=== PATIENT | male | born 1975 | race African-American/Black ===

== ENCOUNTER 2017-07-12 16:08 | Outpatient (CLI) | payer MEDICAID | END 2017-07-12 16:09 | disposition critical access hospital (66) | LOC: EMS 16:08 | PROVIDERS: ATTEND Surgery | DX: R10.9 Unspecified abdominal pain (principal); R07.9 Chest pain, unspecified; R11.10 Vomiting, unspecified | CPT/HCPCS: A0425; A0429 ==

== ENCOUNTER 2017-07-12 16:32 | Observation (INO) | payer MEDICAID ==
--- NOTE | 2017-07-12 16:47 | ED Physician Documentation ---
PD HPI ABD PAIN - Stated complaint Stated Complaint: ABD PX - Chief complaint Chief Complaint: Abd Pain - History obtained from History obtained from: Patient - History of Present Illness Timing - onset: Today (this morning) Timing - details: Gradual onset, Still present, Waxing and waning (started this morning with epigastric pain and some nausea, which worsened this afternoon. Having marked pain upper abd and now repetitive vomiting. Noted some red blood streaks in the emesis. No black color. Has had firm stools recently, without diarrhea nor melena.) Quality: Sharp, Pain Location: Epigastric Radiation: Chest Improved by: Position (lying on side). No: Laying still, Vomiting Worsened by: Eating. No: Breathing Associated symptoms: Nausea, Vomiting, Hematemesis, Loss of appetite. No: Fever , Diarrhea, Constipation, Melena, Hematochezia, Dysuria, Weight loss Review of Systems Ten Systems: 10 systems reviewed and negative Constitutional: denies: Fever, Chills Nose: denies: Rhinorrhea / runny nose, Congestion Throat: denies: Sore throat Cardiac: denies: Palpitations GI: reports: Abdominal Pain, Nausea, Vomiting. denies: Diarrhea : denies: Dysuria, Frequency Neurologic: reports: Generalized weakness. denies: Focal weakness, Numbness, Near syncope, Headache Endocrine: denies: Weight loss, Easy bruising / bleeding PD PAST MEDICAL HISTORY - Past Medical History Cardiovascular: [place] Respiratory: None Neuro: None Endocrine/Autoimmune: None GI: Ulcers - Present Medications Home Medications: Ambulatory Orders Medication Instructions Recorded Confirmed Pantoprazole [Protonix] 40 mg PO DAILY 07/12/17 07/12/17 Prazosin [Minipress] 1 tab PO DAILY 07/12/17 07/12/17 - Allergies Allergies/Adverse Reactions: Allergies Allergy/AdvReac Type Severity Reaction Status Date / Time No Known Drug Allergies Allergy Verified 07/12/17 16:37 - Family History Family history: reports: Non contributory PD ED PE NORMAL - Vitals Vital signs reviewed: Yes - General General: Alert and oriented X 3, Well developed/nourished, Other (in discomfort and is rolling side to side and holding blanket over his head. He is reluctant to have exam due to discomfort. Some vomiting during initial evaluation. ) - HEENT HEENT: Pharynx benign - Neck Neck: Supple, no meningeal sign, No adenopathy - Cardiac Cardiac: RRR, No murmur - Respiratory Respiratory: Clear bilaterally - Abdomen Abdomen: Soft, No organomegaly, Other (markedly tender epigastric/upper abdomen with guarding, no percussion tenderness. Lower abd not tender. Bowel sounds present. Upper abd feels somewhat distended. ) - Male Male : Deferred - Rectal Rectal: Deferred - Back Back: No CVA TTP - Derm Derm: Normal color, Warm and dry - Extremities Extremities: No deformity, No tenderness to palpate, Normal ROM s pain, No edema , No calf tenderness / cord - Neuro Neuro: Alert and oriented X 3, No motor deficit, Normal speech Eye Opening: Spontaneous Motor: Obeys Commands Verbal: Oriented GCS Score: 15 - Psych Psych: Normal mood. No: Normal affect (somewhat anxious) Results - Vitals Vitals: Vital Signs - 24 hr 07/12/17 07/12/17 07/12/17 16:34 19:09 19:35 Temperature 36.5 C Heart Rate 63 56 L 60 Respiratory 16 18 18 Rate Blood Pressure 163/87 H 131/88 H 132/66 H O2 Saturation 98 96 97 07/12/17 07/12/17 07/12/17 20:00 20:37 21:40 Temperature Heart Rate 58 L 55 L 61 Respiratory 16 18 16 Rate Blood Pressure 139/74 H 138/62 H 121/64 O2 Saturation 97 97 98 07/12/17 22:12 Temperature Heart Rate 59 L Respiratory 16 Rate Blood Pressure 116/75 O2 Saturation 99 Oxygen O2 Source Room air - EKG (time done) 16:43 Rate: Rate (enter#) (65) Rhythm: NSR [place]: Normal Intervals: Normal [place] QRS: Normal Ischemia: Normal ST segments, T wave inversion (lateral leads, without ST changes). No: ST elevation c/w ischemia, ST depression Compare to prior EKG: Old EKG unavailable - Labs Labs: Laboratory Tests 07/12/17 07/12/17 07/12/17 19:44 19:44 19:44 WBC 10.3 RBC 4.47 L Hgb 14.1 Hct 42.4 MCV 94.7 H MCH 31.4 H MCHC 33.2 RDW 13.7 Plt Count 277 MPV 7.1 L Neut # Not Reportable Lymph # Not Reportable [place] # Not Reportable Eos # Not Reportable Baso # Not Reportable Absolute Nucleated RBC Not Reportable Total Counted 100 Band Neuts % (Manual) 0 Reactive Lymphs % (Man) 2 Abnorm Lymph % (Manual) 0 Metamyelocytes % 1 H Nucleated RBC % Not Reportable Neutrophils # (Manual) 7.7 H Lymphocytes # (Manual) 2.3 Monocytes # (Manual) 0.2 Eosinophils # (Manual) 0.0 Basophils # (Manual) 0.0 Differential Comment MANUAL DIFFERENTIAL Platelet Estimate NORMAL (130-450,000) Platelet Morphology NORMAL APPEARANCE RBC Morph Micro Appear NORMAL APPEARANCE Sodium 138 Potassium 3.1 L Chloride 103 Carbon Dioxide 23 Anion Gap 12.0 BUN 8 Creatinine 0.7 Estimated GFR (MDRD) 149 Glucose 118 H Calcium 9.2 Total Bilirubin 0.6 AST 23 ALT 25 Alkaline Phosphatase 49 Troponin I < 0.04 Total Protein 7.9 Albumin 5.0 Globulin 2.9 Albumin/Globulin Ratio 1.7 Lipase < 10 L - Rads (name of study) abd CT Radiology: Prelim report reviewed (No acute process to account for the pain) PD MEDICAL DECISION MAKING - ED course Complexity details: reviewed results, re-evaluated patient (Still having pain after meds and feeling nauseated. IV problematic and took several attempts by nursing. Pt given IM meds in interim. IV started and given meds for pain/nausea and also H2 jimi. He has scant amount of blood in emesis. Presume gastritis/ ulcer. He is not improved enough to tolerate PO fluids/foods. Will have Hospitalist evaluate. ), considered differential (Seems likely gastritis. ECG with some t inversions but no ST changes. Has had pain for 8 hours or so with normal troponin. Does not appear cardiac. CT abdomen done and did not show acute process (no perforation, free air). ), d/w patient Departure - Departure Disposition: ED Place in Observation Clinical Impression: Abdominal pain Qualifiers: Abdominal location: epigastric Qualified Code(s): R10.13 - Epigastric pain Vomiting Qualifiers: Vomiting type: hematemesis Nausea presence: with nausea Qualified Code(s): K92.0 - Hematemesis Gastritis Qualifiers: Gastritis type: unspecified gastritis Chronicity: acute Gastritis bleeding: with bleeding Qualified Code(s): K29.01 - Acute gastritis with bleeding Condition: Stable Record reviewed to determine appropriate education?: Yes
[2017-07-12] MEDS ORDERED: SODIUM CHLORIDE 0.9% 1,000 ML IV ONE (17:07)
[2017-07-12] MEDS ORDERED: ONDANSETRON 4 MG/2 ML VIAL IVP STA (17:07)
[2017-07-12] MEDS ORDERED: MORPHINE 2 MG/ML CARPUJECT IVP STA (17:08)
[2017-07-12] MEDS ORDERED: FAMOTIDINE 20 MG/50 ML 50 ML IV ONE (17:08)
[2017-07-12] MEDS ORDERED: PROMETHAZINE 25 MG/1 ML VIAL IM STA (17:08)
[2017-07-12] MEDS ORDERED: HYDROmorphone 1 MG/ML SYRINGE IM STA (17:31)
[2017-07-12] MEDS ORDERED: MORPHINE 2 MG/ML CARPUJECT ONE (17:48)
[2017-07-12] MEDS ORDERED: HYDROmorphone 1 MG/ML SYRINGE IVP STA ×2 (18:10→19:49)
[2017-07-12 19:52] LABS: BASOPHILS % (AUTO) 0.6 %; EOSINOPHILS % (AUTO) 0.1 %; HGB - HEMOGLOBIN 14.1 g/dL (14.0-18.0); MEAN CORPUSCULAR HEMOGLOBIN 31.4 pg (27.0-31.0); MEAN CORPUSCULAR HGB CONC 33.2 g/dL (32.0-36.0); MEAN CORPUSCULAR VOLUME 94.7 fL (80.0-94.0); MEAN PLATELET VOLUME 7.1 fL (7.4-11.4); MONOCYTES % (AUTO) 4.2 %; NEUTROPHILS % (AUTO) 86.1 %; PLT - PLATELET COUNT 277 10^3/uL (130-450); RED BLOOD COUNT 4.47 10^6/uL (4.70-6.10); RED CELL DISTRIBUTION WIDTH 13.7 % (12.0-15.0); WHITE BLOOD COUNT 10.3 x10^3/uL (4.8-10.8)
[2017-07-12 19:55] LABS: ABNORMAL LYMPHS % (MANUAL) 0 %; BAND NEUTROPHILS % (MANUAL) 0 %
[2017-07-12 20:10] LABS: LYMPHOCYTES # (MANUAL) 2.3 10^3/uL (1.5-3.5); LYMPHOCYTES % (MANUAL) 20 %; METAMYELOCYTES % (MANUAL) 1 %; MONOCYTES # (MANUAL) 0.2 10^3/uL (0.0-1.0); NEUTROPHILS # (MANUAL) 7.7 10^3/uL (1.5-6.6); NEUTROPHILS % (MANUAL) 75 %
[2017-07-12 20:11] LABS: DIFFERENTIAL COMMENT MANUAL DIFFERENTIAL; PLATELET ESTIMATE, MANUAL NORMAL (130-450,000) (NORMAL); PLATELET MORPHOLOGY NORMAL APPEARANCE (NORMAL); RBC MORPHOLOGY (MULTIPLE) NORMAL APPEARANCE (NORMAL)
[2017-07-12 20:14] LABS: ALBUMIN/GLOBULIN RATIO 1.7 (1.0-2.2); ALKALINE PHOSPHATASE 49 IU/L (42-121); ALT ALANINE AMINOTRANSFERASE 25 IU/L (10-60); AST ASPARTATE AMINOTRANSFERASE 23 IU/L (10-42); BILIRUBIN,TOTAL 0.6 mg/dL (0.2-1.0); BUN - BLOOD UREA NITROGEN 8 mg/dL (6-20); CALCIUM 9.2 mg/dL (8.5-10.3); CARBON DIOXIDE - CO2 23 mmol/L (21-32); CHLORIDE 103 mmol/L (101-111); CREATININE 0.7 mg/dL (0.6-1.2); GFR - MDRD 149 (>89); GLUCOSE 118 mg/dL (70-100); SODIUM 138 mmol/L (135-145); TOTAL PROTEIN 7.9 g/dL (6.7-8.2)
[2017-07-12 20:34] LABS: LIPASE < 10 U/L (22-51)
--- NOTE | 2017-07-12 21:41 | CT Report ---
EXAM: CT ABDOMEN AND PELVIS EXAM DATE: 07/12/2017 09:24 PM. CLINICAL HISTORY: Upper abd pain and vomiting. COMPARISONS: None. TECHNIQUE: Routine helical CT imaging was performed through the abdomen and pelvis. IV contrast: None . Enteric contrast: No. Reconstructions: Coronal and sagittal. In accordance with CT protocol optimization, one or more of the following dose reduction techniques w ere utilized for this exam: automated exposure control, adjustment of mA and/or KV based on patient s ize, or use of iterative reconstructive technique. FINDINGS: Lung Bases: Unremarkable. Liver: Normal contour. No masses. Gallbladder/Bile Ducts: Unremarkable. Spleen: Normal. Pancreas: Normal. Adrenal Glands: Normal. Kidneys: Normal. No masses or hydronephrosis. No urologic stones are seen. Peritoneal Cavity/Bowel: Normal. No free fluid, free air or adenopathy. No masses or acute inflammato ry process. The appendix is well visualized and normal. Pelvic Organs: Normal. The bladder and visualized pelvic organs appear within normal limits. Vasculature: No aneurysms or other significant abnormality. Bones: No bone lesions. IMPRESSION: There are no CT findings to suggest a cause of the patient's symptoms [facility] Referring Provider Line: [phone] SITE ID: [id number]
[2017-07-12] MEDS ORDERED: HALOPERIDOL 5 MG/ML VIAL IVP ONE (21:58)
[2017-07-13] MEDS ORDERED: ACETAMINOPHEN 1,000 MG/100 ML 100 ML IV PRN
[2017-07-13] MEDS: HYDROmorphone 1 MG/ML SYRINGE IVP PRN ×3 (00:22→11:06)
[2017-07-13] MEDS: SODIUM CHLORIDE FLUSH 0.9% 10 ML SYRINGE IVP PRN ×2 (00:22→08:40)
[2017-07-13] MEDS: D5NS W/20 MEQ KCL 1,000 ML IV SCH ×2 (00:33→13:41)
[2017-07-13] MEDS: PROCHLORPERAZINE 10 MG/2 ML VIAL IVP PRN ×2 (00:46→08:36)
[2017-07-13] MEDS: PANTOPRAZOLE 40 MG VIAL IV SCH ×2 (00:47→08:40)
[2017-07-13] MEDS ORDERED: ZOLPIDEM 5 MG TABLET PO PRN (01:01)
[2017-07-13] MEDS ORDERED: ZOLPIDEM 5 MG TABLET PO SCH (01:10)
[2017-07-13 05:43] LABS: CALCIUM 8.7 mg/dL (8.5-10.3); CREATININE 0.9 mg/dL (0.6-1.2)
[2017-07-13] MEDS: SODIUM CHLORIDE FLUSH 0.9% 10 ML SYRINGE IVP SCH ×2 (05:59→13:04)
--- NOTE | 2017-07-13 06:22 | HISTORY & PHYSICAL EXAMINATION ---
DATE OF SERVICE: Physician: Esther Roberts MD DATE OF ADMISSION: 07/12/2017 This is a 42-year-old black male with a history of "small [place]," probable hypertension, and a history of prior gastric ulcers. The patient presents with 1 day of waxing and waning, and slowly worsening epigastric pain with nausea and vomiting. He denies any fever , melena, hematochezia, hematemesis. His pain was so bad that he was writhing in pain when in the emergency room and vomiting. He has received improvement with antiemetics and pain medications, but still has mild nausea and mild pain, which is across the entire epigastrium with radiation up into the chest. The patient has a separate type of chest pressure that he states has happened since his "small heart attack." He never had a coronary angiogram. He has just moved to the [place] and has not established yet with a primary care provider to have evaluation of this. ALLERGIES: NONE. MEDICATIONS AT HOME 1. Protonix 40 mg daily. 2. Minipress 1 tab p.o. daily. FAMILY HISTORY: No inherent diseases. SOCIAL HISTORY: Nonsmoker, no drug abuse. REVIEW OF SYSTEMS: A comprehensive review of systems was performed and the pertinent positives are in the HPI. PHYSICAL EXAMINATION GENERAL: Male in no distress, supine in bed with head of bed elevated, who appears somewhat fatigued. VITAL SIGNS: Blood pressure 138/62, pulse 55-60 in sinus rhythm, afebrile, room air saturation is 99%. HEENT: Unremarkable with moist oral mucosa. NECK: Shows no JVD, thyromegaly or carotid bruits. CHEST: Clear. HEART: Sounds normal. ABDOMEN: Soft with no distention, decreased bowel sounds, no guarding or rebound. LEGS: No clubbing, cyanosis or edema. No calf tenderness. NEUROLOGIC: Intact. LABS: Sodium 138, potassium 3.1. Normal BUN and creatinine. Normal liver tests. Troponin I detectable at less than 0.04. Albumin 2.9, white blood count 10.3 with elevated metamyelocytes and a left shift of neutrophils. Hemoglobin is 14 and platelet count normal at 277. No INR was done. IMAGING: CT of the abdomen and pelvis showed no etiology to suggest a cause of the patient's symptoms: no free fluid, free air, or masses or inflammatory process. EKG: Normal sinus rhythm, LVH voltage, left anterior fascicular block, early RS transition, symmetrically, deeply inverted T waves in leads V4 through V6. There is no old EKG available for comparison. IMPRESSION/DIAGNOSES 1. Probable gastritis. 2. Nausea and vomiting, prolonged. 3. Abnormal electrocardiogram. 4. Old myocardial infarction, per the patient. PLAN: Place the patient in Observation for bowel rest, IV hydration, IV antiemetics. Cycle his troponins and follow his EKG for any changes. Advance his diet as tolerated to clear liquids starting tomorrow. He should have outpatient evaluation for his separate chest pressure symptoms, which he currently is not having, as well as this abnormal EKG. CODE STATUS: FULL CODE. DVT PROPHYLAXIS: SCDs. ATTESTATION: The patient is expected to be discharged for transfer to another facility within 96 hours: Yes. TD: 07/13/2017 07:21 MTDD
[2017-07-13] MEDS ORDERED: PRAZOSIN 1 MG CAPSULE PO SCH (09:00)
[2017-07-13] MEDS ORDERED: ONDANSETRON ODT 4 MG TABLET TL PRN (10:52)
[2017-07-13 13:50] VITALS: BP 108/58
--- NOTE | 2017-07-13 15:16 | Discharge Plan ---
Discharge Plan Disposition: 01 Home, Self Care Condition: Stable Prescriptions: Ondansetron Odt [Zofran Odt] 4 mg TL Q4HR PRN #10 tablet PRN Reason: Nausea / Vomiting Pantoprazole [Protonix] 40 mg PO DAILY #15 tablet Prazosin [Minipress] 1 mg PO DAILY #15 capsule Diet: Regular Activity Restrictions: Activity as Tolerated Shower Restrictions: No Driving Restrictions: No Weight Bearing: Full Weight No Smoking: If you smoke, Please STOP! Call for help.
--- NOTE | 2017-07-13 15:25 | DISCHARGE SUMMARY ---
Discharge Summary Admit Date: 07/12/17 Discharge Date: 07/13/17 Discharging Provider: Jacque Lopez DO Primary Care Provider: Pt is new to [facility] and will choose one this week Code Status: Attempt Resuscitation Condition at Discharge: Stable Discharge Disposition: Home, Self Care - DIAGNOSES Admission Diagnoses: Gastritis Discharge Diagnoses with Status of Each Condition: Gastriris- The patient does have a history of a fairly recent NM, and had 2 sets of troponins come back completely negative. The EKG shows some mild changes in the inferior leads and lateral leads but is otherwise unremarkable. The patient has been able to tolerate 2 meals of clear liquids and will now be discharged to follow-up with a primary care physician of his choice next week. - HPI History of Present Illness: The patient is a 42-year-old black male with a history of "small NM", hypertension and gastric ulcers. He presented to the emergency department with 1 day of waxing and waning but slowly worsening epigastric pain with nausea and vomiting. He denied any fever or melena, hematochezia, or hematemesis. His pain was so bad that he was writhing in pain when in the emergency room and he was also vomiting. He has received some relief with antiemetics and pain medications but still has mild nausea and mild pain which he says is across the entire epigastrium with radiation up into the chest. He also notes that the pain that he is having right now is different from the pain that he had when he had his "small NM". He has just moved to [facility] has not yet established with a primary care provider to have this pain evaluated. - HOSPITAL COURSE Hospital Course: The patient was admitted to an observation bed. Serial troponins were negative for any cardiac events and EKG showed some mild changes as noted above. He was able to tolerate 2 full meals of clear liquids and will now be discharged home to follow-up with the primary care provider of his choice. - ALLERGIES Allergies/Adverse Reactions: Allergies Allergy/AdvReac Type Severity Reaction Status Date / Time No Known Drug Allergies Allergy Verified 07/12/17 16:37 - MEDICATIONS Home Medications: Ambulatory Orders Medication Instructions Recorded Confirmed Pantoprazole [Protonix] 40 mg PO BID 07/12/17 07/13/17 Ondansetron Odt [Zofran Odt] 4 mg TL Q4HR PRN #10 tablet 07/13/17 Pantoprazole [Protonix] 40 mg PO DAILY #15 tablet 07/13/17 Prazosin [Minipress] 1 mg PO DAILY #15 capsule 07/13/17 Promethazine [Phenergan] 25 mg PO Q6H PRN 07/13/17 07/13/17 Zolpidem [Ambien] 5 mg PO QPM tablet 07/13/17 - PHYSICAL EXAM AT DISCHARGE General Appearance: positive: No acute distress, Alert Eyes Bilateral: positive: Normal inspection, PERRL, EOMI, No lid inflammation, Conjunctivae nml ENT: positive: ENT inspection nml, Pharynx nml, No signs of dehydration. negative: Purulent nasal drainage Neck: positive: Nml inspection, Thyroid nml, No JVD, Trachea midline. negative : Thyromegaly Respiratory: positive: Chest non-tender, No respiratory distress, Breath sounds nml. negative: Wheezes, Rales, Rhonchi Cardiovascular: positive: Regular rate & rhythm, No murmur, No gallop. negative : Bradycardia Peripheral Pulses: positive: 1+ Abdomen: positive: Non-tender, No organomegaly, Nml bowel sounds, No distention. negative: Tenderness Back: positive: Nml inspection. negative: CVA tenderness (R), CVA tenderness (L ) Skin: positive: Color nml, No rash, Warm, Dry. negative: Cyanosis Extremities: positive: Non-tender, Full ROM, Nml appearance, No pedal edema Neurologic/Psychiatric: positive: Oriented x3, CN's nml (2-12), Motor nml, Sensation nml, Mood/affect nml - LABS Result Diagrams: 07/12/17 19:44 07/13/17 05:20 - FOLLOW UP Follow Up: The patient will follow up with the primary care provider of his choice which she will choose next week. It is recommended that he also follow-up with a boilers inspector. - TIME SPENT Time Spent in Discharge (Minutes): 30
== END 2017-07-13 16:00 | disposition home or self-care (01) ==
LOC: ED 16:32 → OBS 23:37
PROVIDERS: ADMIT Internal Medicine; ATTEND Hospitalist
DX: K29.00 Acute gastritis without bleeding (principal); I10 Essential (primary) hypertension; I25.2 Old myocardial infarction
CPT/HCPCS: 36415; 74176; 80048; 80053; 83690; 84484; 85025; 93005; 96361; 96365; 96372; 96375; 96376; 99284; 99285; 99406; A9270; G0378; J1170; Q0162

== ENCOUNTER 2017-08-04 17:57 | Observation (INO) | payer MEDICAID ==
[2017-08-04] MEDS ORDERED: ONDANSETRON 4 MG/2 ML VIAL IVP STA (18:42)
[2017-08-04] MEDS ORDERED: PANTOPRAZOLE 40 MG VIAL IVP STA (18:42)
[2017-08-04] MEDS ORDERED: HYDROmorphone 1 MG/ML SYRINGE IVP STA ×2 (18:42→19:37)
[2017-08-04] MEDS ORDERED: SODIUM CHLORIDE 0.9% 1,000 ML IV ONE ×2 (18:43)
--- NOTE | 2017-08-04 18:44 | ED Physician Documentation ---
PD HPI ABD PAIN - Stated complaint Stated Complaint: VOMITING - Chief complaint Chief Complaint: Abd Pain - History obtained from History obtained from: Patient - History of Present Illness Timing - onset: How many days ago (several) Timing - duration: Days Timing - details: Gradual onset Pain level max: 10 Pain level now: 10 Quality: Aching, Indigestion, Pain Location: Epigastric Radiation: Chest Improved by: Other (nothing) Worsened by: Eating, Other (vomiting) Associated symptoms: Nausea, Vomiting. No: Fever, Hematemesis, Diarrhea, Constipation, Melena, Hematochezia, Dysuria, Hematuria Similar symptoms before: Diagnosis (gastritis) Recently seen: Admitted (observation for vomiting and gastritits. ran out of protonix.) - Additional information Additional information: Also uses marijuana regularly. Review of Systems Ten Systems: 10 systems reviewed and negative Constitutional: denies: Fever, Chills Ears: denies: Ear pain Nose: denies: Rhinorrhea / runny nose, Congestion Cardiac: denies: Chest pain / pressure Respiratory: denies: Cough, Wheezing GI: reports: Nausea, Vomiting. denies: Diarrhea, Hematemesis, Bloody / black stool : denies: Dysuria Skin: denies: Rash Musculoskeletal: denies: Neck pain, Back pain Neurologic: denies: Headache PD PAST MEDICAL HISTORY - Past Medical History Past Medical History: Yes Cardiovascular: Hypertension, [place] Respiratory: None Neuro: None Endocrine/Autoimmune: None GI: Ulcers, Hiatal hernia : None HEENT: None Psych: Depression, Anxiety, Post traumatic stress disorder Musculoskeletal: None Derm: None - Past Surgical History Past Surgical History: Yes General: Appendectomy Ortho: Other - Present Medications Home Medications: Ambulatory Orders Medication Instructions Recorded Confirmed Pantoprazole [Protonix] 40 mg PO BID 07/12/17 08/04/17 Ondansetron Odt [Zofran Odt] 4 mg TL Q4HR PRN #10 tablet 07/13/17 08/04/17 Pantoprazole [Protonix] 40 mg PO DAILY #15 tablet 07/13/17 08/04/17 Prazosin [Minipress] 1 mg PO DAILY #15 capsule 07/13/17 08/04/17 Promethazine [Phenergan] 25 mg PO Q6H PRN 07/13/17 08/04/17 Zolpidem [Ambien] 5 mg PO QPM tablet 07/13/17 08/04/17 - Allergies Allergies/Adverse Reactions: Allergies Allergy/AdvReac Type Severity Reaction Status Date / Time No Known Drug Allergies Allergy Verified 08/04/17 18:15 - Social History Does the pt smoke?: Yes Smoking Status: Current every day smoker Does the pt drink ETOH?: Yes Does the pt have substance abuse?: No Substance Use and Type: Marijuana - Immunizations Immunizations are current?: Yes PD ED PE NORMAL - Vitals Vital signs reviewed: Yes - General General: Alert and oriented X 3, Well developed/nourished, Other (curled in a ball, writhing.) - HEENT HEENT: PERRL, Moist mucous membranes - Neck Neck: Supple, no meningeal sign - Cardiac Cardiac: RRR, Strong equal pulses - Respiratory Respiratory: No respiratory distress, Clear bilaterally - Abdomen Abdomen: Soft, Non distended, Other (TTP epigastric, voluntary guarding. ) - Rectal Rectal: Pt declined - Back Back: No spinal TTP - Derm Derm: Warm and dry, No rash - Extremities Extremities: No edema, No calf tenderness / cord - Neuro Neuro: Alert and oriented X 3 - Psych Psych: Normal mood, Normal affect Results - Vitals Vitals: Vital Signs - 24 hr 08/04/17 08/04/17 08/04/17 18:13 19:33 21:19 Temperature 37.6 C H Heart Rate 94 78 101 H Respiratory 18 15 Rate Blood Pressure 161/112 H 163/113 H 118/82 H O2 Saturation 97 99 99 08/04/17 22:03 Temperature Heart Rate 97 Respiratory 16 Rate Blood Pressure 153/113 H O2 Saturation 97 Oxygen O2 Source Room air - Labs Labs: Laboratory Tests 08/04/17 08/04/17 18:39 18:39 WBC 12.6 H RBC 5.05 Hgb 15.6 Hct 47.4 MCV 93.7 MCH 30.9 MCHC 33.0 RDW 13.4 Plt Count 317 MPV 6.8 L Neut # 7.8 H Lymph # 3.5 [place] # 1.1 H Eos # 0.0 Baso # 0.1 Absolute Nucleated RBC 0.01 Nucleated RBC % 0.1 Sodium 138 Potassium 3.1 L Chloride 100 L Carbon Dioxide 24 Anion Gap 14.0 H BUN 18 Creatinine 1.2 Estimated GFR (MDRD) 80 L Glucose 117 H Calcium 9.7 Total Bilirubin 1.1 H AST 21 ALT 22 Alkaline Phosphatase 45 Total Protein 8.4 H Albumin 5.1 Globulin 3.3 Albumin/Globulin Ratio 1.5 Lipase < 10 L - Rads (name of study) abdomen/pelvis CT Radiology: Prelim report reviewed, EMP read contemporaneously, See rad report ( normal) PD MEDICAL DECISION MAKING - ED course Complexity details: reviewed old records, reviewed results, re-evaluated patient , considered differential, d/w patient, d/w it solutions sales consultant ED course: Patient is a 42-year-old male who presents to the emergency department with nausea vomiting and epigastric pain. Similar symptoms a few weeks ago. Ran out of his Protonix. He was given Zofran, Phenergan, Dilaudid, Ativan, IV fluids. Unable to tolerate p.o. Also given a GI cocktail, but unable to hold that down as well. He was then given haloperidol in case this is cannabinoid- induced hyperemesis, no change in symptoms. His pain was eventually able to be controlled, though still unable to tolerate p.o. No evidence of bowel obstruction or perforation on CT. Given Protonix IV. Will place the patient in observation for fluid hydration and bowel rest. Discussed the case with Dr. Lanza, hospitalist who accepts. This document was made in part using voice recognition software. While efforts are made to proofread this document, sound alike and grammatical errors may occur. Departure - Departure Disposition: ED Place in Observation Clinical Impression: Gastritis Qualifiers: Gastritis type: unspecified gastritis Chronicity: acute Gastritis bleeding: without bleeding Qualified Code(s): K29.00 - Acute gastritis without bleeding Vomiting Qualifiers: Vomiting type: unspecified Vomiting Intractability: intractable Nausea presence : with nausea Qualified Code(s): R11.2 - Nausea with vomiting, unspecified Abdominal pain Qualifiers: Abdominal location: epigastric Qualified Code(s): R10.13 - Epigastric pain Condition: Stable Discharge Date/Time: 08/05/17 00:05
[2017-08-04 18:45] LABS: BASOPHILS # (AUTO) 0.1 10^3/uL (0.0-0.1); BASOPHILS % (AUTO) 0.8 %; EOSINOPHILS % (AUTO) 0.3 %; HGB - HEMOGLOBIN 15.6 g/dL (14.0-18.0); LYMPHOCYTES # (AUTO) 3.5 10^3/uL (1.5-3.5); LYMPHOCYTES % (AUTO) 27.9 %; MEAN CORPUSCULAR HEMOGLOBIN 30.9 pg (27.0-31.0); MEAN CORPUSCULAR VOLUME 93.7 fL (80.0-94.0); MEAN PLATELET VOLUME 6.8 fL (7.4-11.4); MONOCYTES # (AUTO) 1.1 10^3/uL (0.0-1.0); MONOCYTES % (AUTO) 9.1 %; NEUTROPHILS # (AUTO) 7.8 10^3/uL (1.5-6.6); NEUTROPHILS % (AUTO) 61.9 %; PLT - PLATELET COUNT 317 10^3/uL (130-450); RED BLOOD COUNT 5.05 10^6/uL (4.70-6.10); RED CELL DISTRIBUTION WIDTH 13.4 % (12.0-15.0); WHITE BLOOD COUNT 12.6 x10^3/uL (4.8-10.8)
[2017-08-04] MEDS ORDERED: SUCRALFATE 1 GM/10 ML UDC PO STA (18:58)
[2017-08-04] MEDS ORDERED: PHENobarb/HYOSCY/ATROPINE/SCOP 5 ML SYRINGE PO STA (18:58)
[2017-08-04] MEDS ORDERED: MAG HYDROX/AL HYDROX/SIMETH 30 ML UDC PO STA (18:58)
[2017-08-04 19:00] LABS: ALBUMIN 5.1 g/dL (3.2-5.5); ALBUMIN/GLOBULIN RATIO 1.5 (1.0-2.2); ALKALINE PHOSPHATASE 45 IU/L (42-121); ALT ALANINE AMINOTRANSFERASE 22 IU/L (10-60); AST ASPARTATE AMINOTRANSFERASE 21 IU/L (10-42); BILIRUBIN,TOTAL 1.1 mg/dL (0.2-1.0); BUN - BLOOD UREA NITROGEN 18 mg/dL (6-20); CALCIUM 9.7 mg/dL (8.5-10.3); CARBON DIOXIDE - CO2 24 mmol/L (21-32); CHLORIDE 100 mmol/L (101-111); CREATININE 1.2 mg/dL (0.6-1.2); GFR - MDRD 80 (>89); GLUCOSE 117 mg/dL (70-100); LIPASE < 10 U/L (22-51); SODIUM 138 mmol/L (135-145); TOTAL PROTEIN 8.4 g/dL (6.7-8.2)
[2017-08-04] MEDS ORDERED: FAMOTIDINE 20 MG TABLET PO STA (19:37)
[2017-08-04] MEDS ORDERED: LORazepam 2 MG/ML VIAL IVP STA (20:37)
[2017-08-04] MEDS ORDERED: PROMETHAZINE INJ 25 MG in SODIUM CHLORIDE 0.9% 50 ML IV STA (21:10)
[2017-08-04] MEDS ORDERED: HYDROcod/ACETAM 5/325 MG TABLET PO STA (21:10)
[2017-08-04] MEDS ORDERED: IOPAMIDOL-300 100 ML VIAL ONE (21:35)
[2017-08-04] MEDS ORDERED: IOPAMIDOL-300 100 ML VIAL IVP ONE (21:53)
[2017-08-04] MEDS ORDERED: HALOPERIDOL 5 MG/ML VIAL IVP STA (21:59)
--- NOTE | 2017-08-04 22:29 | CT Report ---
EXAM: CT ABDOMEN AND PELVIS EXAM DATE: 08/04/2017 09:57 PM. CLINICAL HISTORY: Epigastric pain, h/o ulcers. COMPARISONS: 07/12/2017 CT. TECHNIQUE: Routine helical CT imaging was performed through the abdomen and pelvis. IV contrast: 100M L ISOVUE 300. Enteric contrast: No. Reconstructions: Coronal and sagittal. In accordance with CT protocol optimization, one or more of the following dose reduction techniques w ere utilized for this exam: automated exposure control, adjustment of mA and/or KV based on patient s ize, or use of iterative reconstructive technique. FINDINGS: Lung Bases: Unremarkable. Liver: Normal. No masses. Gallbladder/Bile Ducts: Unremarkable. Spleen: Normal. Pancreas: Normal. Adrenal Glands: Normal. Kidneys: Normal. No masses or hydronephrosis. Peritoneal Cavity/Bowel: Normal. No free fluid, free air or adenopathy. No masses or acute inflammato ry process. The appendix is well visualized and normal. Pelvic Organs: Normal. The bladder and visualized pelvic organs are within normal limits. Vasculature: No aneurysms or other significant abnormality. Bones: No significant abnormality. Other: None IMPRESSION: Unremarkable abdominal pelvic CT. [facility] Referring Provider Line: [phone] SITE ID: [id number]
[2017-08-04] MEDS ORDERED: ACETAMINOPHEN 325 MG TABLET PO PRN (23:08)
[2017-08-04] MEDS ORDERED: TEMAZEPAM 15 MG CAPSULE PO PRN (23:08)
[2017-08-04] MEDS ORDERED: HYDROcod/ACETAM 5/325 MG TABLET PO PRN (23:08)
[2017-08-04] MEDS ORDERED: HALOPERIDOL 5 MG/ML VIAL IVP PRN (23:12)
[2017-08-04] MEDS ORDERED: KETOROLAC 15 MG/ML VIAL IVP PRN (23:14)
[2017-08-04] MEDS ORDERED: POTASSIUM CHLOR 10 MEQ/100 ML 10 MEQ/100 ML BAG IV SCH (23:53)
[2017-08-05] MEDS: D5.45NS W/20 MEQ KCL 1,000 ML IV SCH ×2 (01:53→16:26)
[2017-08-05] MEDS: SODIUM CHLORIDE FLUSH 0.9% 10 ML SYRINGE IVP PRN ×2 (01:54→16:23)
[2017-08-05] MEDS: FAMOTIDINE 20 MG/50 ML 50 ML IV SCH ×2 (01:54→08:29)
[2017-08-05] MEDS: SUCRALFATE 1 GM/10 ML UDC PO SCH ×4 (01:54→16:16)
[2017-08-05] MEDS: POTASSIUM CHLORIDE 20 MEQ TABLET PO SCH ×2 (01:59→02:03)
--- NOTE | 2017-08-05 04:58 | HISTORY & PHYSICAL EXAMINATION ---
DATE OF SERVICE: 08/04/2017 Physician: Sahra Lanza MD DATE OF ADMISSION: 08/04/2017 CHIEF COMPLAINT: Nausea, vomiting and abdominal pain. HISTORY OF PRESENT ILLNESS: The patient is a 42-year-old male with recent admission to [facility]. In particular, he was admitted and had a short observation stay at the end of June 2017, with the diagnosis of gastritis. At that time, he had an abnormal EKG, complained of chest pain and reported history of myocardial infarction. He was sent home with treatment for gastritis, which included proton pump inhibitor and antiemetics. Today, the patient came to the ER reporting that he ran out of Protonix and, not having a primary care physician, he could not obtain a refill. He started to vomit intractably 3 days ago, complained of ongoing nausea and abdominal discomfort. Denied fever or diarrhea. This time, he did not report chest pain or shortness of breath. He, however, mentioned a history of ulcers and reported being evaluated with upper endoscopy a couple of months ago. Notably, he recently relocated to [facility] from [place]. We do not have any medical records on this patient. In particular, we do not have history of myocardial infarction that he claims he had and we do not have any documentation or objective history on ulcer disease, either. When I questioned the patient about substance abuse, he admitted to using cannabinoid, although not frequently. He denied using other substances. Upon presentation to the ED, the patient appeared nontoxic, had stable vital signs and was afebrile. Laboratory showed slightly elevated white blood cell count of 12.6 and hypokalemia with potassium of 3.1. Liver function tests were unremarkable. Renal function tests were normal as well. At the ER, the patient received multiple medications, quite an extensive regimen, which included: 1. Sucralfate. 2. Promethazine. 3. Phenobarbital. 4. Hyoscyamine. 5. Protonix. 6. Haldol. 7. Zofran. 8. Maalox. 9. Lorazepam. 10. Multiple doses of hydromorphone. 11. Vicodin. 12 Pepcid as well. Regardless of all this, his symptoms did not seem to improve, and he continued to complain of abdominal discomfort and nausea. Therefore, further evaluation was ordered and the patient underwent CT scan of the abdomen with IV contrast, which was an unremarkable, negative study. Subsequently, observation stay was requested for symptom control. PRIMARY CARE PHYSICIAN: No primary care physician. PAST MEDICAL HISTORY: Grossly unknown, but the patient claims having history of myocardial infarction and peptic ulcer disease. He had an abnormal EKG during past admission, but overall negative cardiac workup. OUTPATIENT MEDICATIONS Included: 1. Ambien. 2. Promethazine. 3. Prazosin. 4. Protonix. 5. Zofran. ALLERGIES: NO KNOWN DRUG ALLERGIES. SOCIAL HISTORY: The patient smokes marijuana. He recently relocated from [place]. FAMILY HISTORY: Negative for bowel pathology. REVIEW OF SYSTEMS: Please see pertinent positives listed above at history of present illness. The patient did not report additional complaints on the 12-point review. PRIMARY CARE PHYSICIAN: No outpatient medical care in [facility]. PHYSICAL EXAMINATION VITAL SIGNS: Temperature 37.6, heart rate between 70 and 90, blood pressure between 160/110 and 118/80, respiratory rate 18, oxygen saturation 99% on room air GENERAL: The patient is a well-developed, male who was not in distress. RESPIRATORY: Clear to auscultation without wheezes or crackles. No increased work of breathing. CARDIOVASCULAR: S1, S2, regular. Borderline tachycardia without murmur, rub or gallop. ABDOMEN: The patient was tensing his abdomen when I examined him. It appeared voluntary, then he told me that it was "tender". I could not palpate rebound. Bowel tones were hypoactive. LYMPHATIC: No lymphedema. NEUROLOGIC: Alert, oriented, nonfocal. PSYCHIATRIC: Cooperative. SKIN: The patient had dark skin. I could not appreciate jaundice or pallor. MUSCULOSKELETAL: Atraumatic. ER workup reviewed per electronic medical record. ASSESSMENT AND PLAN: The patient is a 42-year-old male who is getting admitted with symptoms of nausea, vomiting and abdominal pain. Emergency room workup was grossly unremarkable except for mild leukocytosis, which I suspect is nonspecific and hypokalemia. Most likely possibility is cannabinoid induced hyperemesis. The patient's symptoms did not get controlled during the ER stay; therefore, he is getting admitted under observation status. PLAN AND ORDERS 1. The patient is referred for observation. We will continue with symptom control, trying to avoid IV opiates. Toxicology screen was already ordered by the ER physician. We will continue IV hydration. 2. Replace potassium. 3. I discussed with the patient that marijuana could induce the exact symptoms he is experiencing and I recommended cessation. In addition, I asked the patient to provide his prior medical records regarding history of cardiac problems and history of gastric ulcers and endoscopy report. 4. Requested social work for discharge planning. The patient will need to establish primary care. 5. Continue home medications. 6. Deep venous thrombosis prophylaxis. 7. Disposition: This patient is referred for observation stay. The reasonable expectation is that he will be discharged within 24-48 hours. Time spent with the care of this patient was 50 minutes. TD: 08/05/2017 04:57 GONZALO
[2017-08-05] MEDS: SODIUM CHLORIDE FLUSH 0.9% 10 ML SYRINGE IVP SCH ×2 (06:09→12:59)
[2017-08-05] MEDS: ONDANSETRON 4 MG/2 ML VIAL IVP PRN ×2 (06:52→14:05)
[2017-08-05 07:06] LABS: MUDS CUTOFF CONCENTRATIONS CUTOFF CONC BELOW:
[2017-08-05 07:07] LABS: GLUCOSE, URINE (UA) NEGATIVE (NEGATIVE); KETONES,URINE (UA) TRACE mg/dL (NEGATIVE); LEUKOCYTE ESTERASE, URINE NEGATIVE (NEGATIVE); NITRITE,URINE NEGATIVE (NEGATIVE); OCCULT BLOOD,URINE NEGATIVE (NEGATIVE); PROTEIN,URINE NEGATIVE (NEGATIVE); UROBILINOGEN,URINE 0.2 (NORMAL) E.U./dL (NORMAL)
[2017-08-05 07:20] LABS: BILIRUBIN,URINE NEGATIVE (NEGATIVE); CLARITY,URINE CLEAR (CLEAR); ICTOTEST,URINE NEGATIVE
[2017-08-05 07:23] LABS: BENZODIAZEPINES SCREEN, URINE POSITIVE (NEGATIVE); METHAMPHETAMINES SCREEN, URINE POSITIVE (NEGATIVE); OPIATE SCREEN, URINE POSITIVE (NEGATIVE); PROPOXYPHENE SCREEN, URINE POSITIVE (NEGATIVE)
[2017-08-05 07:25] LABS: AMPHETAMINE SCREEN,URINE NEGATIVE (NEGATIVE); COCAINE SCREEN URINE NEGATIVE (NEGATIVE); METHADONE SCREEN, URINE NEGATIVE (NEGATIVE); OXYCODONE SCREEN, URINE NEGATIVE (NEGATIVE); TRICYCLIC ANTIDEPRESSANT,URINE NEGATIVE (NEGATIVE)
[2017-08-05 07:51] LABS: BASOPHILS # (AUTO) 0.1 10^3/uL (0.0-0.1); BASOPHILS % (AUTO) 1.1 %; EOSINOPHILS # (AUTO) 0.1 10^3/uL (0.0-0.7); EOSINOPHILS % (AUTO) 0.8 %; HGB - HEMOGLOBIN 13.8 g/dL (14.0-18.0); LYMPHOCYTES # (AUTO) 3.7 10^3/uL (1.5-3.5); LYMPHOCYTES % (AUTO) 39.3 %; MEAN CORPUSCULAR HEMOGLOBIN 32.2 pg (27.0-31.0); MEAN CORPUSCULAR VOLUME 94.7 fL (80.0-94.0); MEAN PLATELET VOLUME 6.9 fL (7.4-11.4); MONOCYTES # (AUTO) 0.9 10^3/uL (0.0-1.0); MONOCYTES % (AUTO) 9.6 %; NEUTROPHILS # (AUTO) 4.6 10^3/uL (1.5-6.6); NEUTROPHILS % (AUTO) 49.2 %; PLT - PLATELET COUNT 251 10^3/uL (130-450); RED CELL DISTRIBUTION WIDTH 13.7 % (12.0-15.0); WHITE BLOOD COUNT 9.4 x10^3/uL (4.8-10.8)
[2017-08-05 08:02] LABS: CALCIUM 8.7 mg/dL (8.5-10.3)
[2017-08-05] MEDS: PROCHLORPERAZINE 10 MG/2 ML VIAL IVP PRN ×2 (08:35→16:16)
[2017-08-05] MEDS ORDERED: PANTOPRAZOLE 40 MG TABLET PO SCH (09:00)
[2017-08-05] MEDS ORDERED: ENOXAPARIN 40 MG/0.4 ML SYRINGE SUBQ SCH (09:00)
[2017-08-05] MEDS ORDERED: PRAZOSIN 1 MG CAPSULE PO SCH (09:00)
[2017-08-05] MEDS ORDERED: POLYETHYLENE GLYCOL 3350 17 GM PACKET PO SCH (09:00)
[2017-08-05] MEDS: PROMETHAZINE 25 MG TABLET PO PRN ×2 (12:01→18:53)
[2017-08-05 16:21] VITALS: BP 116/71
--- NOTE | 2017-08-05 18:40 | Discharge Plan ---
Discharge Plan Disposition: 01 Home, Self Care Condition: Fair Diet: Regular Activity Restrictions: No Restrictions Shower Restrictions: No Driving Restrictions: No No Smoking: If you smoke, Please STOP! Call for help.
--- NOTE | 2017-08-05 18:43 | DISCHARGE SUMMARY ---
Discharge Summary Admit Date: 08/04/17 Discharge Date: 08/05/17 Discharging Provider: Jacque Lopez DO Primary Care Provider: None Code Status: Attempt Resuscitation Condition at Discharge: Fair Discharge Disposition: 01 Home, Self Care - DIAGNOSES Admission Diagnoses: 1. Abdominal pain 2. Gastritis 3. Nausea and vomiting Discharge Diagnoses with Status of Each Condition: 1. Abdominal pain- improved, resolving. Likely due to poor self care, Patient was positive for 6 different substances on the tox screen. 2. Gastritis- see #1 3. Nausea and vomiting- Resolved. The patient has been able to clear liquids, pretzels, and applesauce today. - HPI History of Present Illness: Mr. Christopher Wills is a 42-year-old male who has been admitted recently to the [facility] for abdominal pain. He has a recent history of coronary artery infarction and was worked up to rule out a cardiac event. The patient says that he does not have a PCP, and that he ran out of his Protonix 3 days ago. While in the emergency department the patient appeared nontoxic and had stable vital signs and was afebrile. Liver function tests renal function tests, and cardiac tests were all negative for any acute events. Because we could not get his symptoms under control, he was brought into observation for symptom management. His symptoms have now resolved and the patient wishes to be discharged. - HOSPITAL COURSE Hospital Course: Mr. Christopher Wills is a 42-year-old male who has been admitted recently to the [facility] for abdominal pain. He has a recent history of coronary artery infarction and was worked up to rule out a cardiac event. The patient says that he does not have a PCP, and that he ran out of his Protonix 3 days ago. While in the emergency department the patient appeared nontoxic and had stable vital signs and was afebrile. Liver function tests renal function tests, and cardiac tests were all negative for any acute events. Because we could not get his symptoms under control, he was brought into observation for symptom management. His symptoms have now resolved and the patient wishes to be discharged. - ALLERGIES Allergies/Adverse Reactions: Allergies Allergy/AdvReac Type Severity Reaction Status Date / Time No Known Drug Allergies Allergy Verified 08/04/17 18:15 - MEDICATIONS Home Medications: Ambulatory Orders Medication Instructions Recorded Confirmed Pantoprazole [Protonix] 40 mg PO BIDAC 07/12/17 08/05/17 Ondansetron Odt [Zofran Odt] 4 mg TL Q4HR PRN #10 tablet 07/13/17 08/05/17 Prazosin [Minipress] 1 mg PO DAILY #15 capsule 07/13/17 08/05/17 Promethazine [Phenergan] 25 mg PO Q6H PRN 07/13/17 08/05/17 - PHYSICAL EXAM AT DISCHARGE General Appearance: positive: No acute distress, Alert Eyes Bilateral: positive: Normal inspection, PERRL, EOMI, No lid inflammation, Conjunctivae nml ENT: positive: ENT inspection nml, Pharynx nml, No signs of dehydration Neck: positive: Nml inspection, Thyroid nml, No JVD, Trachea midline. negative : Thyromegaly Respiratory: positive: Chest non-tender, No respiratory distress, Breath sounds nml. negative: Wheezes, Rales, Rhonchi Cardiovascular: positive: Regular rate & rhythm, No murmur, No gallop Peripheral Pulses: positive: 1+ Abdomen: positive: Non-tender, No organomegaly, Nml bowel sounds, No distention. negative: Guarding, Rebound Back: positive: Nml inspection. negative: CVA tenderness (R), CVA tenderness (L ) Skin: positive: Color nml, No rash, Warm, Dry. negative: Cyanosis Extremities: positive: Non-tender, Full ROM, Nml appearance, No pedal edema Neurologic/Psychiatric: positive: Oriented x3, CN's nml (2-12), Motor nml, Sensation nml, Mood/affect nml - LABS Result Diagrams: 08/05/17 07:47 08/05/17 07:47 - DIAGNOSTIC IMAGING Diagnostic Imaging Results: Final report reviewed Diagnostic Imaging Results Comments: EXAM: CT ABDOMEN AND PELVIS EXAM DATE: 08/04/2017 09:57 PM. CLINICAL HISTORY: Epigastric pain, h/o ulcers. COMPARISONS: 07/12/2017 CT. TECHNIQUE: Routine helical CT imaging was performed through the abdomen and pelvis. IV contrast: 100ML ISOVUE 300. Enteric contrast: No. Reconstructions: Coronal and sagittal. In accordance with CT protocol optimization, one or more of the following dose reduction techniques were utilized for this exam: automated exposure control, adjustment of mA and/or KV based on patient size, or use of iterative reconstructive technique. FINDINGS: Lung Bases: Unremarkable. Liver: Normal. No masses. Gallbladder/Bile Ducts: Unremarkable. Spleen: Normal. Pancreas: Normal. Adrenal Glands: Normal. Kidneys: Normal. No masses or hydronephrosis. Peritoneal Cavity/Bowel: Normal. No free fluid, free air or adenopathy. No masses or acute inflammatory process. The appendix is well visualized and normal. Pelvic Organs: Normal. The bladder and visualized pelvic organs are within normal limits. Vasculature: No aneurysms or other significant abnormality. Bones: No significant abnormality. Other: None IMPRESSION: Unremarkable abdominal pelvic CT. - FOLLOW UP Follow Up: Follow-up with a primary care physician this week. - TIME SPENT Time Spent in Discharge (Minutes): 30
== END 2017-08-05 19:44 | disposition home or self-care (01) ==
LOC: ED 17:57 → OBS 23:08
PROVIDERS: ADMIT Internal Medicine; ATTEND Hospitalist
DX: K29.70 Gastritis, unspecified, without bleeding (principal); E87.6 Hypokalemia; K44.9 Diaphragmatic hernia without obstruction or gangrene; I10 Essential (primary) hypertension; Z87.11 Personal history of peptic ulcer disease; R78.89 Finding of other specified substances, not normally found in blood; Z72.89 Other problems related to lifestyle
CPT/HCPCS: 36415; 74177; 80048; 80053; 80306; 81003; 83690; 83735; 85025; 96361; 96365; 96366; 96367; 96375; 96376; 99218; 99284; 99285; A9270; J1170; J2060; J7040; Q0169; Q9967; 81001; 87086; 99283

== ENCOUNTER 2017-10-09 13:05 | Observation (INO) | payer MEDICAID ==
--- NOTE | 2017-10-09 13:54 | ED Physician Documentation ---
PD HPI NVD - Stated complaint Stated Complaint: ds - Chief complaint Chief Complaint: Cardiac - History obtained from History obtained from: Patient - History of Present Illness Timing - onset: Today, Last night Timing - details: Abrupt onset, Still present Associated symptoms: Abdominal pain (upper abdomen), Loss of appetite. No: Hematemesis, Melena, Hematochezia, Dysuria Contributing factors: Other (he has had gastritis in the past and ran out of his protonixa week ago, with refill resumed just 2 days ago. Has some antiemetics at home as well (Zofran) but they do not work too well for him. Has had similar in the past due to ? gastritis. Hospitalized OBS here in Jun and Jul of this year.). No: Sick contact, Bad food, Recent antibiotics, Alcohol use Improved by: No: Eating, Meds (zofran) Worsened by: Eating, Moving, Palpation. No: Breathing Similar symptoms before: Diagnosis (gastritis) Recently seen: Emergency Dept (July and June with admission each of those times.) Review of Systems Unable to obtain: Uncooperative (initially was hurting too much to talk and reluctant to give ROS, but then was able to after some meds.) Constitutional: denies: Fever, Chills Nose: denies: Rhinorrhea / runny nose, Congestion Throat: denies: Sore throat Cardiac: reports: Chest pain / pressure (epigastric area). denies: Palpitations , Pedal edema, Calf pain Respiratory: denies: Cough GI: reports: Abdominal Pain, Nausea, Vomiting. denies: Diarrhea, Hematemesis, Bloody / black stool : denies: Dysuria, Frequency Skin: denies: Rash, Lesions Neurologic: reports: Generalized weakness. denies: Focal weakness, Numbness, Near syncope, Altered mental status, Headache Psychiatric: denies: Anxiety Endocrine: denies: Weight loss PD PAST MEDICAL HISTORY - Past Medical History Past Medical History: Yes Cardiovascular: Hypertension, [place] (he says he had a "small [place]" in another state before moving here. He says he did not have cath nor stress testing with it though, and is not on cardiac meds. ) Respiratory: None Neuro: None Endocrine/Autoimmune: None GI: Ulcers, Hiatal hernia : None HEENT: None Psych: Depression, Anxiety, Post traumatic stress disorder Musculoskeletal: None Derm: None - Past Surgical History Past Surgical History: Yes General: Appendectomy Ortho: Other - Present Medications Home Medications: Ambulatory Orders Medication Instructions Recorded Confirmed Pantoprazole [Protonix] 40 mg PO BIDAC 07/12/17 08/05/17 Ondansetron Odt [Zofran Odt] 4 mg TL Q4HR PRN #10 tablet 07/13/17 08/05/17 Prazosin [Minipress] 1 mg PO DAILY #15 capsule 07/13/17 08/05/17 Promethazine [Phenergan] 25 mg PO Q6H PRN 07/13/17 08/05/17 - Allergies Allergies/Adverse Reactions: Allergies Allergy/AdvReac Type Severity Reaction Status Date / Time No Known Drug Allergies Allergy Verified 08/04/17 18:15 - Social History Does the pt smoke?: Yes Smoking Status: Current every day smoker Does the pt drink ETOH?: Yes Does the pt have substance abuse?: No - Family History Family history: reports: Non contributory - Immunizations Immunizations are current?: Yes PD ED PE NORMAL - Vitals Vital signs reviewed: Yes - General General: Alert and oriented X 3, Well developed/nourished, Other (appears in significant discomfort. Not wanting to talk due to discomfort. ) - HEENT HEENT: Pharynx benign, Other (some sweating due to discomfort. ) - Neck Neck: Supple, no meningeal sign, No adenopathy - Cardiac Cardiac: RRR, No murmur - Respiratory Respiratory: Clear bilaterally - Abdomen Abdomen: Normal bowel sounds, Non distended, No organomegaly, Other (very tender epigastric with guarding. No percussion tenderness. Emesis without blood nor coffeeground material. ) - Male Male : Deferred - Rectal Rectal: Deferred - Back Back: No CVA TTP - Derm Derm: Normal color, Warm and dry - Extremities Extremities: No tenderness to palpate, Normal ROM s pain, No edema, No calf tenderness / cord - Neuro Neuro: Alert and oriented X 3, No motor deficit, Normal speech - Psych Psych: Normal mood. No: Normal affect (anxious) Results - Vitals Vitals: Vital Signs - 24 hr 10/09/17 10/09/17 10/09/17 13:10 16:00 16:27 Temperature 36.0 C L Heart Rate 63 72 74 Respiratory 20 16 20 Rate Blood Pressure 145/85 H 164/109 H O2 Saturation 97 98 97 Oxygen O2 Source Room air - Labs Labs: Laboratory Tests 10/09/17 10/09/17 10/09/17 16:36 16:36 16:36 WBC 11.5 H RBC 4.46 L Hgb 14.2 Hct 42.4 MCV 95.1 H MCH 31.8 H MCHC 33.4 RDW 14.4 Plt Count 243 MPV 7.1 L Neut # 9.9 H Lymph # 1.2 L [place] # 0.3 Eos # 0.0 Baso # 0.0 Absolute Nucleated RBC 0.00 Nucleated RBC % 0.0 Sodium 138 Potassium 3.9 Chloride 105 Carbon Dioxide 22 Anion Gap 11.0 BUN 9 Creatinine 0.9 Estimated GFR (MDRD) 112 Glucose 93 Calcium 8.9 Total Bilirubin 0.4 AST 28 ALT 34 Alkaline Phosphatase 52 Troponin I < 0.04 Total Protein 8.0 Albumin 4.9 Globulin 3.1 Albumin/Globulin Ratio 1.6 Lipase 17 L Urine Color Urine Clarity Urine pH Ur Specific [place] Urine Protein Urine Glucose (UA) Urine Ketones Urine Occult Blood Urine Nitrite Urine Bilirubin Urine Urobilinogen Ur Leukocyte Esterase Ur Microscopic Review Urine Culture Comments 10/09/17 16:50 WBC RBC Hgb Hct MCV MCH MCHC RDW Plt Count MPV Neut # Lymph # [place] # Eos # Baso # Absolute Nucleated RBC Nucleated RBC % Sodium Potassium Chloride Carbon Dioxide Anion Gap BUN Creatinine Estimated GFR (MDRD) Glucose Calcium Total Bilirubin AST ALT Alkaline Phosphatase Troponin I Total Protein Albumin Globulin Albumin/Globulin Ratio Lipase Urine Color YELLOW Urine Clarity CLEAR Urine pH 7.5 Ur Specific [place] 1.020 Urine Protein NEGATIVE Urine Glucose (UA) NEGATIVE Urine Ketones 40 H Urine Occult Blood NEGATIVE Urine Nitrite NEGATIVE Urine Bilirubin NEGATIVE Urine Urobilinogen 0.2 (NORMAL) Ur Leukocyte Esterase NEGATIVE Ur Microscopic Review NOT INDICATED Urine Culture Comments NOT INDICATED PD MEDICAL DECISION MAKING - ED course Complexity details: reviewed old records (Similar symptoms in pattern in June and July and was admitted both times. CT scans done on both occasions did not show any acute process.), reviewed results, re-evaluated patient (His nausea and vomiting and pain did improve with multiple doses of medicines and he was able to rest and sleep for about an hour to hour and a half. However upon awakening he is feeling nauseous again and holding the emesis bag. He started to have abdominal pain again. Will re-dose with some medications. He has had multiple doses of antiemetics from different categories and also pain medicine a couple of doses. At this point I do not see him improving enough to be dischargeable and I talked with the hospitalist.) , considered differential (gastritis, ulcer, hyperemesis, pancreatitis, biliary colic as all possibilities. ), d/w patient Departure - Departure Disposition: ED Place in Observation Clinical Impression: Gastritis Qualifiers: Gastritis type: other gastritis Chronicity: unspecified Gastritis bleeding: without bleeding Qualified Code(s): K29.60 - Other gastritis without bleeding Abdominal pain Qualifiers: Abdominal location: epigastric Qualified Code(s): R10.13 - Epigastric pain Vomiting Qualifiers: Vomiting type: unspecified Vomiting Intractability: intractable Nausea presence : with nausea Qualified Code(s): R11.2 - Nausea with vomiting, unspecified Condition: Stable Record reviewed to determine appropriate education?: Yes
[2017-10-09] MEDS ORDERED: PROMETHAZINE INJ 25 MG in SODIUM CHLORIDE 0.9% 50 ML IV STA (14:02)
[2017-10-09] MEDS ORDERED: SODIUM CHLORIDE 0.9% 1,000 ML IV ONE ×2 (14:02→17:00)
[2017-10-09] MEDS ORDERED: ONDANSETRON 4 MG/2 ML VIAL IVP STA ×2 (14:02→17:58)
[2017-10-09] MEDS ORDERED: HYDROmorphone 1 MG/ML CARPUJECT IVP STA ×2 (14:03→15:22)
[2017-10-09] MEDS ORDERED: FAMOTIDINE 20 MG/50 ML 50 ML IV ONE (14:03)
[2017-10-09] MEDS ORDERED: PROMETHAZINE INJ 12.5 MG in SODIUM CHLORIDE 0.9% 50 ML IV STA (15:21)
[2017-10-09] MEDS ORDERED: diphenhydrAMINE INJ 50 MG/ML VIAL IVP STA (15:21)
[2017-10-09] MEDS ORDERED: HALOPERIDOL 5 MG/ML VIAL IVP ONE ×2 (15:21→17:58)
[2017-10-09] MEDS ORDERED: PANTOPRAZOLE 40 MG VIAL IVP STA (16:35)
[2017-10-09 16:43] LABS: BASOPHILS % (AUTO) 0.3 %; HGB - HEMOGLOBIN 14.2 g/dL (14.0-18.0); LYMPHOCYTES # (AUTO) 1.2 10^3/uL (1.5-3.5); LYMPHOCYTES % (AUTO) 10.5 %; MEAN CORPUSCULAR HEMOGLOBIN 31.8 pg (27.0-31.0); MEAN CORPUSCULAR HGB CONC 33.4 g/dL (32.0-36.0); MEAN CORPUSCULAR VOLUME 95.1 fL (80.0-94.0); MEAN PLATELET VOLUME 7.1 fL (7.4-11.4); MONOCYTES # (AUTO) 0.3 10^3/uL (0.0-1.0); NEUTROPHILS # (AUTO) 9.9 10^3/uL (1.5-6.6); NEUTROPHILS % (AUTO) 86.2 %; PLT - PLATELET COUNT 243 10^3/uL (130-450); RED BLOOD COUNT 4.46 10^6/uL (4.70-6.10); RED CELL DISTRIBUTION WIDTH 14.4 % (12.0-15.0); WHITE BLOOD COUNT 11.5 x10^3/uL (4.8-10.8)
[2017-10-09 16:55] LABS: ALBUMIN 4.9 g/dL (3.2-5.5); ALBUMIN/GLOBULIN RATIO 1.6 (1.0-2.2); BILIRUBIN,TOTAL 0.4 mg/dL (0.2-1.0); CALCIUM 8.9 mg/dL (8.5-10.3); CREATININE 0.9 mg/dL (0.6-1.2)
[2017-10-09 17:56] LABS: MUDS CUTOFF CONCENTRATIONS CUTOFF CONC BELOW:
[2017-10-09 18:00] LABS: BILIRUBIN,URINE NEGATIVE (NEGATIVE); GLUCOSE, URINE (UA) NEGATIVE (NEGATIVE); KETONES,URINE (UA) 40 mg/dL (NEGATIVE); LEUKOCYTE ESTERASE, URINE NEGATIVE (NEGATIVE); NITRITE,URINE NEGATIVE (NEGATIVE); OCCULT BLOOD,URINE NEGATIVE (NEGATIVE); PH,URINE 7.5 PH (5.0-7.5); PROTEIN,URINE NEGATIVE (NEGATIVE); UROBILINOGEN,URINE 0.2 (NORMAL) E.U./dL (NORMAL)
[2017-10-09 18:03] LABS: CLARITY,URINE CLEAR (CLEAR)
[2017-10-09 18:11] LABS: AMPHETAMINE SCREEN,URINE NEGATIVE (NEGATIVE); BENZODIAZEPINES SCREEN, URINE NEGATIVE (NEGATIVE); COCAINE SCREEN URINE NEGATIVE (NEGATIVE); METHADONE SCREEN, URINE NEGATIVE (NEGATIVE); METHAMPHETAMINES SCREEN, URINE NEGATIVE (NEGATIVE); OPIATE SCREEN, URINE POSITIVE (NEGATIVE); OXYCODONE SCREEN, URINE NEGATIVE (NEGATIVE); PROPOXYPHENE SCREEN, URINE NEGATIVE (NEGATIVE); TRICYCLIC ANTIDEPRESSANT,URINE NEGATIVE (NEGATIVE)
[2017-10-09] MEDS ORDERED: SODIUM CHLORIDE FLUSH 0.9% 10 ML SYRINGE IVP PRN (18:19)
[2017-10-09] MEDS ORDERED: ZOLPIDEM 5 MG TABLET PO PRN (18:19)
--- NOTE | 2017-10-09 18:53 | HISTORY & PHYSICAL EXAMINATION ---
Chief Complaint - Chief Complaint Chief Complaint: nausea, vomiting and whole body ache History of Present Illness - Admitted From Admitted From:: ER - History Obtained From History obtained from: pt - History of Present Illness HPI Comment/Other: Mr. Wills is 42-yrs-old male with a PMH significant for HTN, "small ID" in another state before moving here, gastric ulcer, hiatal hernia, depression, anxiety, post traumatic stress disorder, who present ER for complaints of nausea , vomiting and whole body ache. Pt report these nausea, vomiting and initiating abdominal pain started four days ago. Pt report he missed his Protonix medication for more than one week. Until two days ago, he saw his PCP , he was prescribed Protonix but at the time he was sick and it was difficult for him to have oral medication down to his stomach. Pt report he had these gastric GI problem since he was in the high school. He report he had couples times of EGD, but no significant finding was discovered before. Mr. Wills had the twice similar episodes with nausea, vomiting and abdominal pain, whole body ache, at the early 2017. Pt had two CT of abdomen which reveals unremarkable. Pt report he continue to use marijuana as regular. Pt denies hematemesis, melena, hematochezia. No fever, chill, cough. Pt also denies sick contact, recent travel , possible food poison, alcoholic use, and illicit drug abuse. Pt had multiple doses of antiemetics from different categories and also pain medications in a few doses which could not help subside his symptoms. Lab tests are unremarkable except slight elevated WBC at 11.5. At this point, pt is admitted in observation unit for intractable nausea, vomiting, abdominal pain, possible gastritis. History - Past Medical History Cardiovascular: reports: Hypertension, ID (he says he had a "small ID" in another state before moving here. He says he did not have cath nor stress testing with it though, and is not on cardiac meds. ) Respiratory: reports: None Neuro: reports: None Endocrine/Autoimmune: reports: None GI: reports: Ulcers, Hiatal hernia : reports: None HEENT: reports: None Psych: reports: Depression, Anxiety, Post traumatic stress disorder Musculoskeletal: reports: None Derm: reports: None - Past Surgical History General: reports: Appendectomy Ortho: reports: Other - Family & Social History Family History: Mother: Alive and Well (is living with colon cancer), Father: ( from prostate cancer) Family History Comment/Other: Pt is living [facility]. Pt decline to provide any more family information at this points Living arrangement: At home - Substance History Use: Uses substance without health or social issues: Cannabis - POLST POLST Status: Full Code Meds/Allgy - Home Medications Home Medications: Ambulatory Orders Medication Instructions Recorded Confirmed Pantoprazole [Protonix] 40 mg PO BIDAC 07/12/17 10/10/17 Ondansetron Odt [Zofran Odt] 4 mg TL Q4HR PRN #10 tablet 07/13/17 10/10/17 Prazosin [Minipress] 1 mg PO DAILY #15 capsule 07/13/17 10/10/17 Promethazine [Phenergan] 25 mg PO Q6H PRN 07/13/17 10/10/17 - Allergies Allergies/Adverse Reactions: Allergies Allergy/AdvReac Type Severity Reaction Status Date / Time No Known Drug Allergies Allergy Verified 08/04/17 18:15 Review of Systems - Constitutional Constitutional: reports: Poor appetite. denies: Fatigue, Fever, Chills, Malaise , Weakness, Diaphoresis, Night sweats, Weight gain, Weight loss - Eyes Eyes: denies: Pain, Irritation, Amaurosis, Blurred vision, Spots in vision, Field loss, Vision loss, Dipolpia - Ears, Nose & Throat Ears, Nose & Throat: denies: Ear pain, Hearing loss, Hearing aids, Tinnitus, Vertigo, Nasal pain, Nasal discharge, Nasal obstruction, Postnasal drainage, Sore throat, Bleeding gums, Dental decay - Cardiovascular Cariovascular: denies: Irregular heart rate, Palpitations, Chest pain, Edema, Lightheadedness, Syncope, Exertional dyspnea, Decr. exercise tolerance - Respiratory Respiratory: denies: Cough, Sputum production, Wheezing, Snoring, Hemoptysis, Orthopnea, SOB at rest, SOB with exertion, Apnea, Stridor, Pleuritic pain - Gastrointestinal Gastrointestinal: reports: Abdominal pain, Nausea, Vomiting, Poor appetite. denies: Abdominal distention, Constipation, Diarrhea, Change in bowel habits, Rectal bleeding, Black stools, Bloody stools, Bile emesis, Sherif blood emesis, Coffee grounds emesis, Reflux/heartburn, Bloating - Genitourinary Genitourinary: denies: Dysuria, Frequency, Urgency, Hematuria, Incontinence, Flank pain, Nocturia, Urethral discharge - Musculoskeletal Musculoskeletal: denies: Muscle pain, Back pain, Muscle aches, Stiffness, Limited range of motion, Muscle weakness, Gout, Joint pain - Integumentary Integumentary: denies: Rash, Pruritis, Lesions, Dryness, Lumps, Acne, Pigment changes, Nail changes - Neurological Neurological: denies: General weakness, Focal weakness, Headache, Dizziness, Numbness, Memory problems, Pre-existing deficit, Abnormal gait, Seizures, Incoordination, Slurred speech - Psychiatric Psychiatric: denies: Depression, Anxiety, Delusions, Hallucinations, Homicidal - Endocrine Endocrine: denies: Polyuria, Polydypsia, Polyphagia, Intolerance to cold - Hematologic/Lymphatic Hematologic/Lymphatic: denies: Anemia, Bruising, Petechiae, Blood clots, Lymphadenopathy, Bleeding tendencies Exam - Vital Signs Reviewed Vital Signs: Yes Vital Signs: Vital Signs x48h Pulse Resp BP Pulse Ox 10/09/17 18:40 76 18 156/90 H 98 - Physical Exam General Appearance: positive: Alert, Mild distress. negative: Lethargic Eyes Bilateral: positive: Normal inspection, PERRL, No lid inflammation, Conjunctivae nml ENT: positive: ENT inspection nml, Pharynx nml, No signs of dehydration. negative: Purulent nasal drainage, Pharyngeal erythema, Oral lesions Neck: positive: Nml inspection, Thyroid nml, No JVD, Trachea midline. negative : Thyromegaly, Lymphadenopathy (R), Lymphadenopathy (L), Stiff neck, Swelling/ bruising, Tracheal deviation Respiratory: positive: Chest non-tender, No respiratory distress, Breath sounds nml. negative: Wheezes, Rales, Rhonchi Cardiovascular: positive: Regular rate & rhythm, No murmur, No gallop. negative : Irregularly irregular, Extrasystoles, Tachycardia, Bradycardia, JVD present, Systolic murmur, Diastolic murmur Peripheral Pulses: positive: 2+ Abdomen: positive: Non-tender, No organomegaly, Nml bowel sounds, No distention. negative: Tenderness, Guarding, Rebound Back: positive: Nml inspection. negative: CVA tenderness (R), CVA tenderness (L ) Skin: positive: Color nml, No rash, Warm, Dry. negative: Cyanosis, Diaphoresis , Pallor Extremities: positive: Non-tender, Full ROM, Nml appearance. negative: Calf tenderness, Joint swelling, Maximilian's sign/cords Neurologic/Psychiatric: positive: Oriented x3, Motor nml, Sensation nml. negative: Sensory loss, Facial droop, Slurred/abnml speech, Depressed mood/ affect Conclusion/Plan - Problem List (1) Gastritis Conclusion/Plan: long history since he was in the high school. CT of abdomen revealed unremarkable. EGD before, per pt report, was unremarkable Protonix IV Bid IVF antiemetics PRN Qualifiers: Gastritis type: other gastritis Chronicity: unspecified Gastritis bleeding: without bleeding Qualified Code(s): K29.60 - Other gastritis without bleeding (2) Intractable nausea and vomiting Conclusion/Plan: recurrence problem, pt report he continue use of marijuana IVF of NS daily lab test, correct electrolytes antiemetics (3) Abdominal pain Conclusion/Plan: recent CT of abdomen were unremarkable, previous EGD, per pt report, unremarkable, pt has hx of abdominal pain with N/V, gastritis for long time. pain control support, IVF, clear diet now, advanced as needed Qualifiers: Abdominal location: epigastric Qualified Code(s): R10.13 - Epigastric pain (4) HTN (hypertension) Conclusion/Plan: pt does not take home BP meds will vital monitor, add Clonidine PRN (5) History of depression Conclusion/Plan: stable, no home medication, closely nurse and staff monitor. (6) DVT prophylaxis Conclusion/Plan: SCD and lovenox (7) Full code status Conclusion/Plan: pt request full code status - Lab Results Fish Bones: 10/10/17 05:33 10/10/17 05:33 Core Measures - Anticipated LOS I expect patient to be DC'd or transferred within 96 hours.: Yes - DVT/VTE - Prophylaxis VTE/DVT Device ordered at admit?: Yes VTE/DVT Prophylaxis med ordered at admit?: Yes
[2017-10-09] MEDS: SODIUM CHLORIDE 0.9% 1,000 ML IV SCH (19:33)
[2017-10-09] MEDS: PROMETHAZINE 25 MG/1 ML VIAL IM PRN (22:17)
[2017-10-10] MEDS: HYDROmorphone 0.5 MG/0.5 ML SYRINGE IVP PRN ×3 (00:47→05:17)
[2017-10-10] MEDS: ONDANSETRON 4 MG/2 ML VIAL IVP PRN ×4 (00:47→21:39)
[2017-10-10] MEDS: PROCHLORPERAZINE 10 MG/2 ML VIAL IVP PRN ×4 (02:52→23:52)
[2017-10-10] MEDS: PROMETHAZINE 25 MG/1 ML VIAL IM PRN ×3 (05:23→19:33)
[2017-10-10] MEDS: SODIUM CHLORIDE 0.9% 1,000 ML IV SCH (05:24)
[2017-10-10 05:45] LABS: BASOPHILS # (AUTO) 0.1 10^3/uL (0.0-0.1); BASOPHILS % (AUTO) 0.5 %; LYMPHOCYTES # (AUTO) 2.2 10^3/uL (1.5-3.5); LYMPHOCYTES % (AUTO) 18.6 %; MEAN CORPUSCULAR HEMOGLOBIN 31.2 pg (27.0-31.0); MEAN CORPUSCULAR HGB CONC 33.2 g/dL (32.0-36.0); MEAN CORPUSCULAR VOLUME 93.8 fL (80.0-94.0); MONOCYTES # (AUTO) 0.8 10^3/uL (0.0-1.0); MONOCYTES % (AUTO) 7.3 %; NEUTROPHILS # (AUTO) 8.6 10^3/uL (1.5-6.6); NEUTROPHILS % (AUTO) 73.6 %; PLT - PLATELET COUNT 271 10^3/uL (130-450); RED BLOOD COUNT 4.17 10^6/uL (4.70-6.10); RED CELL DISTRIBUTION WIDTH 13.9 % (12.0-15.0); WHITE BLOOD COUNT 11.6 x10^3/uL (4.8-10.8)
[2017-10-10 05:56] LABS: ALBUMIN 4.3 g/dL (3.2-5.5); ALBUMIN/GLOBULIN RATIO 1.5 (1.0-2.2); BILIRUBIN,TOTAL 0.6 mg/dL (0.2-1.0); CALCIUM 8.2 mg/dL (8.5-10.3); MAGNESIUM 1.9 mg/dL (1.7-2.8); TOTAL PROTEIN 7.2 g/dL (6.7-8.2)
[2017-10-10] MEDS: PANTOPRAZOLE 40 MG VIAL IVP SCH ×2 (06:37→16:25)
[2017-10-10] MEDS: SODIUM CHLORIDE FLUSH 0.9% 10 ML SYRINGE IVP SCH ×4 (06:37→23:57)
[2017-10-10] MEDS ORDERED: POTASSIUM CHLORIDE 20 MEQ TABLET PO ONE (07:29)
[2017-10-10] MEDS ORDERED: cloNIDine 0.1 MG TABLET PO PRN (07:32)
[2017-10-10] MEDS: ENOXAPARIN 40 MG/0.4 ML SYRINGE SUBQ SCH (08:40)
[2017-10-10] MEDS: POLYETHYLENE GLYCOL 3350 17 GM PACKET PO SCH (08:40)
[2017-10-10] MEDS: POTASSIUM CHLOR 10 MEQ/100 ML 10 MEQ/100 ML BAG IV SCH ×2 (09:32→11:28)
[2017-10-10] MEDS: D5.45NS W/20 MEQ KCL 1,000 ML IV SCH ×2 (09:32→19:55)
--- NOTE | 2017-10-10 16:04 | PROVIDER PROGRESS NOTE ---
Subjective - Prog Note Date Prog Note Date: 10/10/17 - Subjective Pt reports feeling: Improved Subjective: pt report he feel better, nausea and vomiting is better, pain is better as well. but no appetite and does not eat anything yet, and fear to eat. Denies chest pain, shortness of breath, fever,chill, cough. Current Medications - Current Medications Current Medications: Active Medications Clonidine HCl (Catapres) 0.1 mg PO BID PRN PRN Reason: Hypertensive Emergency Enoxaparin Sodium (Lovenox) 40 mg SUBQ DAILY [facility] Last Admin: 10/10/17 08:40 Dose: Not Given Hydromorphone HCl (Dilaudid Inj Syringe) 0.5 mg IVP Q2HR PRN PRN Reason: Pain 8 to 10 Last Admin: 10/10/17 05:17 Dose: 0.5 mg Potassium Chloride/Dextrose/Sod Cl (D5.45ns W/20 Meq Kcl) 1,000 mls @ 100 mls/ hr IV .Q10H [facility] Last Admin: 10/10/17 09:32 Dose: 100 mls/hr Ondansetron HCl (Zofran Inj) 4 mg IVP Q6HR PRN PRN Reason: Nausea / Vomiting Last Admin: 10/10/17 13:50 Dose: 4 mg Pantoprazole Sodium (Protonix) 40 mg IVP BIDAC [facility] Last Admin: 10/10/17 06:37 Dose: 40 mg Polyethylene Glycol (Miralax) 17 gm PO DAILY [facility] Last Admin: 10/10/17 08:40 Dose: Not Given Prazosin HCl (Minipress) 1 mg PO QPM [facility] Prochlorperazine Edisylate (Compazine Inj) 10 mg IVP Q6HR PRN PRN Reason: Nausea / Vomiting Last Admin: 10/10/17 15:45 Dose: 10 mg Promethazine HCl (Phenergan Inj) 25 mg IM Q6HR PRN PRN Reason: Nausea / Vomiting Last Admin: 10/10/17 11:56 Dose: 25 mg Sodium Chloride (Normal Saline Flush 0.9%) 10 ml IVP PRN PRN PRN Reason: NEEDED PER PROVIDER ORDERS Sodium Chloride (Normal Saline Flush 0.9%) 10 ml IVP 0100,0900,1700 [facility] Last Admin: 10/10/17 07:39 Dose: 10 ml Zolpidem Tartrate (Ambien) 5 mg PO QPM PRN PRN Reason: Insomnia Pantoprazole [Protonix] 40 mg PO BIDAC 07/12/17 Promethazine [Phenergan] 25 mg PO Q6H PRN 07/13/17 Objective - Vital Signs/Intake & Output Reviewed Vital Signs: Yes Intake & Output: Intake & Output 10/07/17 10/08/17 10/09/17 10/10/17 23:59 23:59 23:59 23:59 Intake Total 1500.000 Output Total 900 510 Balance -900 990.000 - Objective General Appearance: positive: No acute distress, Alert. negative: Lethargic Eyes Bilateral: positive: Normal inspection, PERRL, No lid inflammation, Conjunctivae nml ENT: positive: ENT inspection nml, Pharynx nml Neck: positive: Nml inspection, Thyroid nml, No JVD, Trachea midline. negative : Thyromegaly, Lymphadenopathy (R), Lymphadenopathy (L), Stiff neck, Carotid bruit, Swelling/bruising, Tracheal deviation Respiratory: positive: Chest non-tender, No respiratory distress, Breath sounds nml. negative: Wheezes, Rales, Rhonchi Cardiovascular: positive: Regular rate & rhythm, No murmur, No gallop. negative : Irregularly irregular, Extrasystoles, Tachycardia, Bradycardia, Systolic murmur, Diastolic murmur Peripheral Pulses: 2+ Radial (R), 2+ Radial (L), 2+ Dorsalis pedis (R), 2+ Dorsalis pedis (L) Abdomen: positive: Non-tender, No organomegaly, Nml bowel sounds, No distention. negative: Tenderness, Guarding, Rebound Back: positive: Nml inspection. negative: CVA tenderness (R), CVA tenderness (L ) Skin: positive: Color nml, No rash, Warm, Dry. negative: Cyanosis, Diaphoresis , Pallor Extremities: positive: Non-tender, Full ROM, Nml appearance. negative: Calf tenderness, Joint swelling, Maximilian's sign/cords Neurologic/Psychiatric: positive: Oriented x3, Motor nml, Sensation nml. negative: Sensory loss, Facial droop, Slurred/abnml speech, Depressed mood/ affect - Lab Results Fish Bones: 10/10/17 05:33 10/10/17 05:33 Other Labs: Lab Results x24hrs 10/10/17 10/10/17 10/09/17 Range/Units 05:33 05:33 18:20 WBC 11.6 H (4.8-10.8) x10^3/uL RBC 4.17 L (4.70-6.10) 10^6/uL Hgb 13.0 L (14.0-18.0) g/dL Hct 39.2 L (42.0-52.0) % MCV 93.8 (80.0-94.0) fL MCH 31.2 H (27.0-31.0) pg MCHC 33.2 (32.0-36.0) g/dL RDW 13.9 (12.0-15.0) % Plt Count 271 (130-450) 10^3/uL MPV 7.0 L (7.4-11.4) fL Neut # 8.6 H (1.5-6.6) 10^3/uL Lymph # 2.2 (1.5-3.5) 10^3/uL Roosevelt # 0.8 (0.0-1.0) 10^3/uL Eos # 0.0 (0.0-0.7) 10^3/uL Baso # 0.1 (0.0-0.1) 10^3/uL Absolute Nucleated RBC 0.00 x10^3/uL Nucleated RBC % 0.0 /100WBC Sodium 135 (135-145) mmol/L Potassium 3.4 L (3.5-5.0) mmol/L Chloride 104 (101-111) mmol/L Carbon Dioxide 20 L (21-32) mmol/L Anion Gap 11.0 (6-13) BUN 8 (6-20) mg/dL Creatinine 1.0 (0.6-1.2) mg/dL Estimated GFR (MDRD) 99 (>89) Glucose 101 H (70-100) mg/dL Calcium 8.2 L (8.5-10.3) mg/dL Magnesium 1.9 (1.7-2.8) mg/dL Total Bilirubin 0.6 (0.2-1.0) mg/dL AST 25 (10-42) IU/L ALT 29 (10-60) IU/L Alkaline Phosphatase 46 (42-121) IU/L Total Protein 7.2 (6.7-8.2) g/dL Albumin 4.3 (3.2-5.5) g/dL Globulin 2.9 (2.1-4.2) g/dL Albumin/Globulin Ratio 1.5 (1.0-2.2) Influenza A (Rapid) Negative (Negative) Influenza B (Rapid) Negative (Negative) Assessment/Plan - Problem List (1) Gastritis Impression: (1) Gastritis Conclusion/Plan: pt feel better but does not have appetite and did not eat any yet, hope stay overnight. continue Protonix IV continue IVF clear diet advanced as needed long history since he was in the high school. CT of abdomen revealed unremarkable. EGD before, per pt report, was unremarkable Protonix IV Bid IVF antiemetics PRN (2) Intractable nausea and vomiting Conclusion/Plan: better for N/V continue antiemetics PRN continue IVF daily lab monitor recurrence problem, pt report he continue use of marijuana IVF of NS daily lab test, correct electrolytes antiemetics (3) Abdominal pain Conclusion/Plan: better for abdominal pain continue pain control recent CT of abdomen were unremarkable, previous EGD, per pt report, unremarkable, pt has hx of abdominal pain with N/V, gastritis for long time. pain control support, IVF, clear diet now, advanced as needed (4) HTN (hypertension) Conclusion/Plan: stable, continue monitor pt does not take home BP meds will vital monitor, add Clonidine PRN (5) History of depression Conclusion/Plan: stable, no home medication, closely nurse and staff monitor. Qualifiers: Gastritis type: other gastritis Chronicity: unspecified Gastritis bleeding: without bleeding Qualified Code(s): K29.60 - Other gastritis without bleeding (3) Abdominal pain Qualifiers: Abdominal location: epigastric Qualified Code(s): R10.13 - Epigastric pain
[2017-10-10] MEDS: PRAZOSIN 1 MG CAPSULE PO SCH (21:39)
[2017-10-11] MEDS: PROMETHAZINE 25 MG/1 ML VIAL IM PRN ×2 (01:42→08:22)
[2017-10-11] MEDS: D5.45NS W/20 MEQ KCL 1,000 ML IV SCH (05:34)
[2017-10-11] MEDS: ONDANSETRON 4 MG/2 ML VIAL IVP PRN ×2 (05:34→11:52)
[2017-10-11] MEDS: PANTOPRAZOLE 40 MG VIAL IVP SCH ×2 (06:14→16:31)
[2017-10-11] MEDS: HYDROmorphone 0.5 MG/0.5 ML SYRINGE IVP PRN ×3 (06:56→11:06)
[2017-10-11] MEDS: PROCHLORPERAZINE 10 MG/2 ML VIAL IVP PRN ×3 (07:13→22:56)
[2017-10-11] MEDS: POLYETHYLENE GLYCOL 3350 17 GM PACKET PO SCH (08:14)
[2017-10-11] MEDS: SODIUM CHLORIDE FLUSH 0.9% 10 ML SYRINGE IVP SCH ×3 (08:24→16:31)
[2017-10-11] MEDS: ENOXAPARIN 40 MG/0.4 ML SYRINGE SUBQ SCH (10:47)
[2017-10-11] MEDS: LORazepam 2 MG/ML VIAL IVP PRN ×4 (11:27→21:15)
--- NOTE | 2017-10-11 11:33 | Ultrasound Report ---
EXAM: ABDOMEN ULTRASOUND LIMITED, RUQ EXAM DATE: 10/11/2017 11:06 AM. CLINICAL HISTORY: Right and epigastric pain. COMPARISON: 08/04/2017. TECHNIQUE: Real-time scanning was performed with static images obtained. FINDINGS: Liver: Normal in size and echotexture. 17 cm. Main portal vein flow: Hepatopetal. Gallbladder: Normal. No stones, wall thickening, or sonographic Mancini's sign. Biliary System: CBD measures 5 mm. No intrahepatic or extrahepatic ductal dilatation. Other: No right hydronephrosis. IMPRESSION: Negative. No cholelithiasis or cholecystitis. [facility] Referring Provider Line: [phone] SITE ID: [id number]
[2017-10-11 11:39] LABS: ALBUMIN 4.3 g/dL (3.2-5.5); ALBUMIN/GLOBULIN RATIO 1.5 (1.0-2.2); BILIRUBIN,TOTAL 0.6 mg/dL (0.2-1.0); CALCIUM 8.7 mg/dL (8.5-10.3); TOTAL PROTEIN 7.1 g/dL (6.7-8.2)
--- NOTE | 2017-10-11 13:54 | PROVIDER PROGRESS NOTE ---
Subjective - Prog Note Date Prog Note Date: 10/11/17 - Subjective Pt reports feeling: No change Subjective: pt state he still fear to eat because the eating make him N/V. discuss with pt about marijuana cyclic vomiting syndrome, and cannibinoid hyperemesis syndrome. pt refuse to have medication of Carafate. plan to d/c pt on tomorrow. Current Medications - Current Medications Current Medications: Active Medications Clonidine HCl (Catapres) 0.1 mg PO BID PRN PRN Reason: Hypertensive Emergency Enoxaparin Sodium (Lovenox) 40 mg SUBQ DAILY [facility] Last Admin: 10/11/17 10:47 Dose: Not Given Hydromorphone HCl (Dilaudid Inj Syringe) 0.5 mg IVP Q2HR PRN PRN Reason: Pain 8 to 10 Last Admin: 10/11/17 11:06 Dose: 0.5 mg Sodium Chloride (Normal Saline 0.9%) 1,000 mls @ 100 mls/hr IV .Q10H [facility] Lorazepam (Ativan Inj (Vial)) 0.5 mg IVP Q2H PRN PRN Reason: Anxiety Last Admin: 10/11/17 11:27 Dose: 0.5 mg Ondansetron HCl (Zofran Inj) 4 mg IVP Q6HR PRN PRN Reason: Nausea / Vomiting Last Admin: 10/11/17 11:52 Dose: 4 mg Pantoprazole Sodium (Protonix) 40 mg IVP BIDAC [facility] Last Admin: 10/11/17 06:14 Dose: 40 mg Polyethylene Glycol (Miralax) 17 gm PO DAILY [facility] Last Admin: 10/11/17 08:14 Dose: Not Given Prazosin HCl (Minipress) 1 mg PO QPM [facility] Last Admin: 10/10/17 21:39 Dose: Not Given Prochlorperazine Edisylate (Compazine Inj) 10 mg IVP Q6HR PRN PRN Reason: Nausea / Vomiting Last Admin: 10/11/17 07:13 Dose: 10 mg Promethazine HCl (Phenergan Inj) 25 mg IM Q6HR PRN PRN Reason: Nausea / Vomiting Last Admin: 10/11/17 08:22 Dose: 25 mg Sodium Chloride (Normal Saline Flush 0.9%) 10 ml IVP PRN PRN PRN Reason: NEEDED PER PROVIDER ORDERS Last Admin: 10/11/17 06:14 Dose: 10 ml Sodium Chloride (Normal Saline Flush 0.9%) 10 ml IVP 0100,0900,1700 [facility] Last Admin: 10/11/17 08:24 Dose: Not Given Zolpidem Tartrate (Ambien) 5 mg PO QPM PRN PRN Reason: Insomnia Pantoprazole [Protonix] 40 mg PO BIDAC 07/12/17 Promethazine [Phenergan] 25 mg PO Q6H PRN 07/13/17 Objective - Vital Signs/Intake & Output Reviewed Vital Signs: Yes Vital Signs: Vital Signs x48h Temp Pulse Resp BP BP Pulse Ox 10/11/17 10:52 37.0 C 69 19 159/98 H 100 10/11/17 06:19 36.7 C 58 L 18 130/81 H 100 Intake & Output: Intake & Output 10/08/17 10/09/17 10/10/17 10/11/17 23:59 23:59 23:59 23:59 Intake Total 2500.000 965 Output Total 900 1235 850 Balance -900 1265.000 115 - Objective General Appearance: positive: Alert, Mild distress. negative: Lethargic Eyes Bilateral: positive: Normal inspection, PERRL, No lid inflammation, Conjunctivae nml ENT: positive: ENT inspection nml, Pharynx nml, No signs of dehydration. negative: Purulent nasal drainage, Pharyngeal erythema, Oral lesions Neck: positive: Nml inspection, Thyroid nml, No JVD, Trachea midline. negative : Thyromegaly, Lymphadenopathy (R), Lymphadenopathy (L), Stiff neck, Carotid bruit, Swelling/bruising, Tracheal deviation Respiratory: positive: Chest non-tender, No respiratory distress, Breath sounds nml. negative: Wheezes, Rales, Rhonchi Cardiovascular: positive: Regular rate & rhythm, No murmur, No gallop. negative : Irregularly irregular, Extrasystoles, Tachycardia, Bradycardia, JVD present, Systolic murmur, Diastolic murmur Peripheral Pulses: 2+ Radial (R), 2+ Radial (L), 2+ Dorsalis pedis (R), 2+ Dorsalis pedis (L) Abdomen: positive: Non-tender, No organomegaly, Nml bowel sounds, No distention. negative: Tenderness, Guarding, Rebound Back: positive: Nml inspection. negative: CVA tenderness (R), CVA tenderness (L ) Skin: positive: Color nml, No rash, Warm, Dry. negative: Cyanosis, Diaphoresis , Pallor Extremities: positive: Non-tender, Full ROM, Nml appearance. negative: Calf tenderness, Joint swelling, Maximilian's sign/cords Neurologic/Psychiatric: positive: Oriented x3, Motor nml, Sensation nml. negative: Weakness, Sensory loss, Facial droop, Slurred/abnml speech, Depressed mood/affect - Lab Results Fish Bones: 10/10/17 05:33 10/11/17 11:18 Other Labs: Lab Results x24hrs 10/11/17 Range/Units 11:18 Sodium 135 (135-145) mmol/L Potassium 4.4 (3.5-5.0) mmol/L Chloride 104 (101-111) mmol/L Carbon Dioxide 23 (21-32) mmol/L Anion Gap 8.0 (6-13) BUN 7 (6-20) mg/dL Creatinine 1.0 (0.6-1.2) mg/dL Estimated GFR (MDRD) 99 (>89) Glucose 127 H (70-100) mg/dL Calcium 8.7 (8.5-10.3) mg/dL Total Bilirubin 0.6 (0.2-1.0) mg/dL AST 98 H (10-42) IU/L ALT 36 (10-60) IU/L Alkaline Phosphatase 47 (42-121) IU/L Total Protein 7.1 (6.7-8.2) g/dL Albumin 4.3 (3.2-5.5) g/dL Globulin 2.8 (2.1-4.2) g/dL Albumin/Globulin Ratio 1.5 (1.0-2.2) Assessment/Plan - Problem List (1) Gastritis Impression: (1) Gastritis Conclusion/Plan: pt fear to eat because he thought eating cause his N/V, reassure and encourage to ear clear diet first pt refuse to have Carafate continue Protonix IV continue IVF clear diet advanced as needed pt feel better but does not have appetite and did not eat any yet, hope stay overnight. continue Protonix IV continue IVF clear diet advanced as needed long history since he was in the high school. CT of abdomen revealed unremarkable. EGD before, per pt report, was unremarkable Protonix IV Bid IVF antiemetics PRN (2) Intractable nausea and vomiting Conclusion/Plan: discuss with pt about Marijuana caused cyclic vomiting syndrome. Pt state he will read the article about the topic continue antiemetics PRN continue IVF better for N/V continue antiemetics PRN continue IVF daily lab monitor recurrence problem, pt report he continue use of marijuana IVF of NS daily lab test, correct electrolytes antiemetics (3) Abdominal pain Conclusion/Plan: pt complaint of upper gastric and right upper quadrant abdominal pain order US, which reveal unremarkable, no cholecystitis. continue pain control better for abdominal pain continue pain control recent CT of abdomen were unremarkable, previous EGD, per pt report, unremarkable, pt has hx of abdominal pain with N/V, gastritis for long time. pain control support, IVF, clear diet now, advanced as needed (4) HTN (hypertension) Conclusion/Plan: stable, continue monitor pt does not take home BP meds will vital monitor, add Clonidine PRN (5) History of depression Conclusion/Plan: stable, no home medication, closely nurse and staff monitor. Qualifiers: Gastritis type: other gastritis Chronicity: unspecified Gastritis bleeding: without bleeding Qualified Code(s): K29.60 - Other gastritis without bleeding (3) Abdominal pain Qualifiers: Abdominal location: epigastric Qualified Code(s): R10.13 - Epigastric pain
[2017-10-11] MEDS: SODIUM CHLORIDE 0.9% 1,000 ML IV SCH ×2 (14:12→22:56)
[2017-10-11] MEDS: PRAZOSIN 1 MG CAPSULE PO SCH (19:46)
[2017-10-12] MEDS: SODIUM CHLORIDE FLUSH 0.9% 10 ML SYRINGE IVP SCH (00:14)
[2017-10-12] MEDS: ONDANSETRON 4 MG/2 ML VIAL IVP PRN (04:10)
[2017-10-12] MEDS: PANTOPRAZOLE 40 MG VIAL IVP SCH (06:19)
[2017-10-12 06:40] LABS: BASOPHILS # (AUTO) 0.1 10^3/uL (0.0-0.1); BASOPHILS % (AUTO) 1.1 %; EOSINOPHILS # (AUTO) 0.2 10^3/uL (0.0-0.7); EOSINOPHILS % (AUTO) 1.7 %; HGB - HEMOGLOBIN 12.2 g/dL (14.0-18.0); LYMPHOCYTES # (AUTO) 2.9 10^3/uL (1.5-3.5); LYMPHOCYTES % (AUTO) 29.4 %; MEAN CORPUSCULAR HEMOGLOBIN 31.5 pg (27.0-31.0); MEAN CORPUSCULAR VOLUME 92.7 fL (80.0-94.0); MEAN PLATELET VOLUME 6.6 fL (7.4-11.4); MONOCYTES % (AUTO) 10.2 %; NEUTROPHILS # (AUTO) 5.7 10^3/uL (1.5-6.6); NEUTROPHILS % (AUTO) 57.6 %; PLT - PLATELET COUNT 243 10^3/uL (130-450); RED BLOOD COUNT 3.88 10^6/uL (4.70-6.10); RED CELL DISTRIBUTION WIDTH 13.4 % (12.0-15.0); WHITE BLOOD COUNT 9.8 x10^3/uL (4.8-10.8)
[2017-10-12 06:55] LABS: ALBUMIN 3.6 g/dL (3.2-5.5); ALBUMIN/GLOBULIN RATIO 1.6 (1.0-2.2); BILIRUBIN,TOTAL 0.6 mg/dL (0.2-1.0); CALCIUM 7.9 mg/dL (8.5-10.3); TOTAL PROTEIN 5.9 g/dL (6.7-8.2)
[2017-10-12] MEDS: PROCHLORPERAZINE 10 MG/2 ML VIAL IVP PRN (07:24)
[2017-10-12 07:30] VITALS: BP 128/76
[2017-10-12] MEDS ORDERED: SUCRALFATE 1 GM/10 ML UDC PO SCH (08:00)
[2017-10-12] MEDS ORDERED: POTASSIUM CHLORIDE 20 MEQ TABLET PO ONE (08:09)
[2017-10-12] MEDS ORDERED: POTASSIUM CHLOR 10 MEQ/100 ML 10 MEQ/100 ML BAG IV SCH (08:30)
--- NOTE | 2017-10-12 08:30 | Discharge Plan ---
Discharge Plan Disposition: 01 Home, Self Care Condition: Stable Diet: Regular Activity Restrictions: Activity as Tolerated Shower Restrictions: No Driving Restrictions: No Instruction Topics: Abuse Marijuana, Cyclic Vomiting Syndrome Ch Additional Instructions or Follow Up instructions: May see PCP in two weeks, should symptoms return or worsen, may present ER or call 911 for help No Smoking: If you smoke, Please STOP! Call for help.
--- NOTE | 2017-10-12 09:22 | DISCHARGE SUMMARY ---
Discharge Summary Discharge Date: 10/12/17 Discharging Provider: HOPPER Condition at Discharge: Stable Discharge Disposition: 01 Home, Self Care Discharge Facility Name: home - DIAGNOSES Admission Diagnoses: (1) Gastritis (2) Intractable nausea and vomiting (3) Abdominal pain (4) HTN (hypertension) (5) History of depression Discharge Diagnoses with Status of Each Condition: (1) Gastritis No N/V/D, no abdominal pain after treatment. pt request to d/c home. pt tolerate the diet, resume home meds, continue be managed by PCP (2) Intractable nausea and vomiting resolve (3) Abdominal pain resolved (4) HTN (hypertension) stable, continue home regime (5) History of depression stable, continue be managed by PCP - HPI History of Present Illness: Mr. Wills is 42-yrs-old male with a PMH significant for HTN, "small [place]" in another state before moving here, gastric ulcer, hiatal hernia, depression, anxiety, post traumatic stress disorder, who present ER for complaints of nausea , vomiting and whole body ache. Pt report these nausea, vomiting and initiating abdominal pain started four days ago. Pt report he missed his Protonix medication for more than one week. Until two days ago, he saw his PCP , he was prescribed Protonix but at the time he was sick and it was difficult for him to have oral medication down to his stomach. Pt report he had these gastric GI problem since he was in the high school. He report he had couples times of EGD, but no significant finding was discovered before. Mr. Wills had the twice similar episodes with nausea, vomiting and abdominal pain, whole body ache, at the early 2017. Pt had two CT of abdomen which reveals unremarkable. Pt report he continue to use marijuana as regular. Pt denies hematemesis, melena, hematochezia. No fever, chill, cough. Pt also denies sick contact, recent travel , possible food poison, alcoholic use, and illicit drug abuse. Pt had multiple doses of antiemetics from different categories and also pain medications in a few doses which could not help subside his symptoms. Lab tests are unremarkable except slight elevated WBC at 11.5. At this point, pt is admitted in observation unit for intractable nausea, vomiting, abdominal pain, possible gastritis. - HOSPITAL COURSE Hospital Course: pt was admitted for intractable N/V, and abdominal pain. Pt had twice similar admissions at this year. CT of abdomen revealed unremarkable. US of this admission reveals unremarkable as well. pt continue to take Marijuana. Pt was treated with IVF, bowel rest, support treatment. Pt become asymptomatic today morning, and request to be D/C to home. pt tolerate diet as well. - ALLERGIES Allergies/Adverse Reactions: Allergies Allergy/AdvReac Type Severity Reaction Status Date / Time No Known Drug Allergies Allergy Verified 08/04/17 18:15 - MEDICATIONS Home Medications: Ambulatory Orders Medication Instructions Recorded Confirmed Pantoprazole [Protonix] 40 mg PO BIDAC 07/12/17 10/10/17 Ondansetron Odt [Zofran Odt] 4 mg TL Q4HR PRN #10 tablet 07/13/17 10/10/17 Prazosin [Minipress] 1 mg PO DAILY #15 capsule 07/13/17 10/10/17 Promethazine [Phenergan] 25 mg PO Q6H PRN 07/13/17 10/10/17 - PHYSICAL EXAM AT DISCHARGE General Appearance: positive: No acute distress, Alert. negative: Lethargic Eyes Bilateral: positive: Normal inspection, PERRL, No lid inflammation, Conjunctivae nml ENT: positive: ENT inspection nml, Pharynx nml, No signs of dehydration. negative: Purulent nasal drainage, Pharyngeal erythema, Oral lesions Neck: positive: Nml inspection, Thyroid nml, No JVD, Trachea midline. negative : Thyromegaly, Lymphadenopathy (R), Lymphadenopathy (L), Stiff neck, Carotid bruit, Swelling/bruising, Tracheal deviation Respiratory: positive: Chest non-tender, No respiratory distress, Breath sounds nml. negative: Wheezes, Rales, Rhonchi Cardiovascular: positive: Regular rate & rhythm, No murmur, No gallop. negative : Irregularly irregular, Extrasystoles, Tachycardia, Bradycardia, JVD present, Systolic murmur, Diastolic murmur Peripheral Pulses: positive: 2+ Abdomen: positive: Non-tender, No organomegaly, Nml bowel sounds, No distention. negative: Tenderness, Guarding, Rebound Back: positive: Nml inspection. negative: CVA tenderness (R), CVA tenderness (L ) Skin: positive: Color nml, No rash, Warm, Dry. negative: Cyanosis, Diaphoresis , Pallor Extremities: positive: Non-tender, Full ROM, Nml appearance. negative: No pedal edema, Pedal edema, Calf tenderness, Joint swelling, Maximilian's sign/cords Neurologic/Psychiatric: positive: Oriented x3, Motor nml, Sensation nml. negative: Weakness, Sensory loss, Facial droop, Slurred/abnml speech, Depressed mood/affect - LABS Result Diagrams: 10/12/17 06:33 10/12/17 06:33 - FOLLOW UP Follow Up: May see PCP in two weeks, should symptoms return or worsen, may present ER or call 911 for help - TIME SPENT Time Spent in Discharge (Minutes): 35
[2017-10-12] MEDS: POLYETHYLENE GLYCOL 3350 17 GM PACKET PO SCH (09:38)
[2017-10-12] MEDS: ENOXAPARIN 40 MG/0.4 ML SYRINGE SUBQ SCH (09:38)
[2017-10-12] MEDS ORDERED: CALCIUM GLUCONATE 1,000 MG in SODIUM CHLORIDE 0.9% 50 ML IV ONE (10:30)
== END 2017-10-12 10:50 | disposition home or self-care (01) ==
LOC: ED 13:05 → OBS 18:19
PROVIDERS: ADMIT Nurse Practitioner Gerontology; ATTEND Nurse Practitioner Gerontology
DX: K29.70 Gastritis, unspecified, without bleeding (principal); T47.1X6A Underdosing of other antacids and anti-gastric-secretion drugs, initial encounter; Z91.138 Patient's unintentional underdosing of medication regimen for other reason; I10 Essential (primary) hypertension; K44.9 Diaphragmatic hernia without obstruction or gangrene; F17.200 Nicotine dependence, unspecified, uncomplicated; F32.9 Major depressive disorder, single episode, unspecified; F41.9 Anxiety disorder, unspecified; F43.10 Post-traumatic stress disorder, unspecified; I25.2 Old myocardial infarction; Z87.11 Personal history of peptic ulcer disease
CPT/HCPCS: 36415; 76705; 80053; 80306; 81003; 83690; 83735; 84484; 85025; 87275; 87276; 93005; 96361; 96365; 96366; 96367; 96368; 96372; 96375; 96376; 99284; 99285; A9270; G0378; J1170; J1200; J2060; J7040; 81001; 87086

== ENCOUNTER 2018-01-28 02:10 | Outpatient (CLI) | payer MEDICAID | END 2018-01-28 02:11 | disposition critical access hospital (66) | LOC: EMS 02:10 | PROVIDERS: ATTEND Surgery | DX: R11.2 Nausea with vomiting, unspecified (principal); R10.9 Unspecified abdominal pain | CPT/HCPCS: A0425; A0427; A0999 ==

== ENCOUNTER 2018-01-28 02:33 | Observation (INO) | payer MEDICAID ==
[2018-01-28] MEDS ORDERED: ONDANSETRON ODT 4 MG TABLET TL STA ×2 (03:09→09:46)
--- NOTE | 2018-01-28 04:31 | ED Physician Documentation ---
PD HPI NVD - Stated complaint Stated Complaint: ABD PAIN, VOMITING - Chief complaint Chief Complaint: Abd Pain - History obtained from History obtained from: Patient - History of Present Illness Timing - onset: How many days ago (2 days ago (Friday, January 26)) Timing - duration: Days Timing - details: Abrupt onset, Constant, Waxing and waning Pain level max: 10 Pain level now: 10 Associated symptoms: Abdominal pain. No: Fever Improved by: Other (no ameliorating factors) Worsened by: Eating Recently seen: Other (fourth [facility] ED visit this year, with previous 3 visits resulting in admission. he also was admitted to a hospital in [place], [place] last month for same) Review of Systems Constitutional: reports: Reviewed and negative Eyes: reports: Reviewed and negative Ears: reports: Reviewed and negative Nose: reports: Reviewed and negative Throat: reports: Reviewed and negative Cardiac: reports: Reviewed and negative Respiratory: reports: Reviewed and negative GI: reports: Abdominal Pain, Nausea, Vomiting. denies: Abdominal Swelling, Constipation, Diarrhea : denies: Dysuria, Frequency Skin: reports: Reviewed and negative Musculoskeletal: reports: Reviewed and negative Neurologic: reports: Reviewed and negative PD PAST MEDICAL HISTORY - Past Medical History Cardiovascular: Hypertension, [place] Respiratory: None Endocrine/Autoimmune: None GI: Ulcers, Hiatal hernia : None HEENT: None Psych: Depression, Anxiety, Post traumatic stress disorder Musculoskeletal: None Derm: None - Past Surgical History Past Surgical History: Yes General: Appendectomy Ortho: Other - Present Medications Home Medications: Ambulatory Orders Medication Instructions Recorded Confirmed Pantoprazole [Protonix] 40 mg PO BIDAC 07/12/17 10/10/17 Ondansetron Odt [Zofran Odt] 4 mg TL Q4HR PRN #10 tablet 07/13/17 10/10/17 Prazosin [Minipress] 1 mg PO DAILY #15 capsule 07/13/17 10/10/17 Promethazine [Phenergan] 25 mg PO Q6H PRN 07/13/17 10/10/17 - Allergies Allergies/Adverse Reactions: Allergies Allergy/AdvReac Type Severity Reaction Status Date / Time No Known Drug Allergies Allergy Verified 01/28/18 02:37 - Social History Does the pt smoke?: Yes Smoking Status: Current every day smoker Does the pt drink ETOH?: Yes Does the pt have substance abuse?: No - Immunizations Immunizations are current?: Yes - POLST POLST Status: Full Code PD ED PE NORMAL - Vitals Vital signs reviewed: Yes - General General: Alert and oriented X 3, Well developed/nourished, Other (vomiting during HPI) - HEENT HEENT: PERRL, EOMI, Moist mucous membranes - Neck Neck: Supple, no meningeal sign - Cardiac Cardiac: RRR, No murmur - Respiratory Respiratory: No respiratory distress, Clear bilaterally - Abdomen Abdomen: Soft, Non tender, Non distended - Back Back: No CVA TTP - Derm Derm: Normal color, Warm and dry - Extremities Extremities: No edema - Neuro Neuro: Alert and oriented X 3 Results - Vitals Vitals: Vital Signs - 24 hr 01/28/18 01/28/18 01/28/18 02:34 05:36 06:26 Temperature 36.1 C L Heart Rate 64 92 97 Respiratory 18 16 18 Rate Blood Pressure 185/115 H 121/81 H 130/81 H O2 Saturation 100 98 98 01/28/18 01/28/18 07:41 10:20 Temperature Heart Rate 94 94 Respiratory 16 16 Rate Blood Pressure 154/101 H 162/113 H O2 Saturation 99 98 Oxygen O2 Source Room air - Labs Labs: Laboratory Tests 01/28/18 01/28/18 05:31 05:31 WBC 11.5 H RBC 4.14 L Hgb 13.2 L Hct 38.8 L MCV 93.8 MCH 31.9 H MCHC 34.0 RDW 14.2 Plt Count 336 MPV 7.1 L Neut # (Auto) 9.7 H Lymph # (Auto) 1.3 L Titus # (Auto) 0.5 Eos # (Auto) 0.0 Baso # (Auto) 0.0 Absolute Nucleated RBC 0.00 Nucleated RBC % 0.0 Sodium 139 Potassium 3.5 Chloride 104 Carbon Dioxide 23 Anion Gap 12.0 BUN 7 Creatinine 0.9 Estimated GFR (MDRD) 112 Glucose 127 H Calcium 9.4 Total Bilirubin 0.4 AST 27 ALT 29 Alkaline Phosphatase 55 Total Protein 7.7 Albumin 4.6 Globulin 3.1 Albumin/Globulin Ratio 1.5 Lipase 23 PD MEDICAL DECISION MAKING - ED course Complexity details: reviewed old records, reviewed results, re-evaluated patient , considered differential, d/w patient ED course: BIBA, was given IM zofran en route due to unable to obtain IV access. Patient repeatedly says he is "a hard stick", repeatedly requests antinauseants and pain medication, says he "always gets admitted for this", and that he typically needs either a central line or PICC. Patient tells me that when he was in the hospital last month in [place], he required aggressive rehydration via PICC line due to "acute renal failure" and that his "kidney test that's supposed to be around one was six". Records from [facility] in [place] faxed; these indicate hospital admission on 12/24 and again 01/17, both were for same symptoms ( intractable nausea, vomiting, and abdominal pain) although I do not see any indication of acute renal failure. Upper endoscopy performed 12/25 indicated gastritis and "gastropathy" with biopsies that were H. Pylori (-). In ED on today's visit, given IM dilaudid and phenergan and repeat dose of both of these when he reported no relief with first dose. We tried PO challenge, but patient says he is too nauseas and has too much pain to try even sips of water. D/W Dr. Bush, will admit. Multiple attempts by ED nurses but unable to obtain IV access except for blood draw - Sepsis Event Vital Signs: Vital Signs - 24 hr 01/28/18 01/28/18 01/28/18 02:34 05:36 06:26 Temperature 36.1 C L Heart Rate 64 92 97 Respiratory 18 16 18 Rate Blood Pressure 185/115 H 121/81 H 130/81 H O2 Saturation 100 98 98 01/28/18 01/28/18 07:41 10:20 Temperature Heart Rate 94 94 Respiratory 16 16 Rate Blood Pressure 154/101 H 162/113 H O2 Saturation 99 98 Oxygen O2 Source Room air Departure - Departure Disposition: 66 [facility] DC/Xfer Clinical Impression: Abdominal pain, Gastritis, Intractable nausea and vomiting Condition: Good
[2018-01-28] MEDS ORDERED: HYDROmorphone 1 MG/ML CARPUJECT IM STA ×2 (04:36→07:28)
[2018-01-28] MEDS ORDERED: PROMETHAZINE 25 MG/1 ML VIAL IM STA ×2 (04:36→07:28)
[2018-01-28] MEDS ORDERED: SODIUM CHLORIDE 0.9% 1,000 ML IV STA ×2 (04:38→06:47)
[2018-01-28 05:53] LABS: ALBUMIN 4.6 g/dL (3.2-5.5); ALBUMIN/GLOBULIN RATIO 1.5 (1.0-2.2); BILIRUBIN,TOTAL 0.4 mg/dL (0.2-1.0); CALCIUM 9.4 mg/dL (8.5-10.3); CREATININE 0.9 mg/dL (0.6-1.2); TOTAL PROTEIN 7.7 g/dL (6.7-8.2)
[2018-01-28 05:54] LABS: HGB - HEMOGLOBIN 13.2 g/dL (14.0-18.0); LYMPHOCYTES # (AUTO) 1.3 10^3/uL (1.5-3.5); MONOCYTES # (AUTO) 0.5 10^3/uL (0.0-1.0); NEUTROPHILS # (AUTO) 9.7 10^3/uL (1.5-6.6); NEUTROPHILS % (AUTO) 83.9 %
[2018-01-28 05:57] LABS: BASOPHILS % (AUTO) 0.3 %; LYMPHOCYTES % (AUTO) 11.2 %; MEAN CORPUSCULAR HEMOGLOBIN 31.9 pg (27.0-31.0); MEAN CORPUSCULAR VOLUME 93.8 fL (80.0-94.0); MEAN PLATELET VOLUME 7.1 fL (7.4-11.4); MONOCYTES % (AUTO) 4.6 %; PLT - PLATELET COUNT 336 10^3/uL (130-450); RED BLOOD COUNT 4.14 10^6/uL (4.70-6.10); RED CELL DISTRIBUTION WIDTH 14.2 % (12.0-15.0); WHITE BLOOD COUNT 11.5 x10^3/uL (4.8-10.8)
[2018-01-28] MEDS ORDERED: HYDROmorphone 1 MG/ML CARPUJECT IVP STA (06:47)
[2018-01-28] MEDS ORDERED: ONDANSETRON 4 MG/2 ML VIAL IVP STA (06:47)
[2018-01-28 10:31] LABS: MUDS CUTOFF CONCENTRATIONS CUTOFF CONC BELOW:
[2018-01-28] MEDS ORDERED: ACETAMINOPHEN 325 MG TABLET PO PRN (10:33)
[2018-01-28] MEDS ORDERED: ONDANSETRON ODT 4 MG TABLET TL PRN (10:33)
[2018-01-28] MEDS ORDERED: ZOLPIDEM 5 MG TABLET PO PRN (10:33)
[2018-01-28] MEDS ORDERED: PROMETHAZINE 25 MG/1 ML VIAL IM PRN (10:33)
[2018-01-28 10:45] LABS: AMPHETAMINE SCREEN,URINE NEGATIVE (NEGATIVE); BENZODIAZEPINES SCREEN, URINE NEGATIVE (NEGATIVE); COCAINE SCREEN URINE NEGATIVE (NEGATIVE); METHADONE SCREEN, URINE NEGATIVE (NEGATIVE); METHAMPHETAMINES SCREEN, URINE NEGATIVE (NEGATIVE); OPIATE SCREEN, URINE NEGATIVE (NEGATIVE); TRICYCLIC ANTIDEPRESSANT,URINE POSITIVE (NEGATIVE)
[2018-01-28 10:46] LABS: OXYCODONE SCREEN, URINE NEGATIVE (NEGATIVE); PROPOXYPHENE SCREEN, URINE NEGATIVE (NEGATIVE)
--- NOTE | 2018-01-28 10:54 | HISTORY & PHYSICAL EXAMINATION ---
Chief Complaint - Chief Complaint Chief Complaint: nausea, vomiting and abdominal pain <Squires - Last Filed: 01/30/18 08:13> History of Present Illness <Vito Travis - Last Filed: 01/28/18 22:50> <Squires - Last Filed: 01/30/18 08:13> - History of Present Illness HPI Comment/Other: Mr. Wills is 42-yrs-old male with a PMH significant for HTN, "small [place]" in another state before moving here, gastric ulcer, hiatal hernia, depression, anxiety, post traumatic stress disorder, who present ER for complaints of nausea , vomiting and diffuse abdominal pain. Pt report these nausea, vomiting and initiating abdominal pain started one days ago. Pt report he recently hospitalized in [place] with similar medical problem. Pt also had multiple admission in this hospital with similar problem. Recent CT of abdomen reveals without acute significant finding. Pt report he continue to smoke Cannabinoids. Pt denies chest pain, fever, chill, cough, shortness of breath. (Squires) History - Past Medical History Cardiovascular: reports: Hypertension, [place] Respiratory: reports: None Endocrine/Autoimmune: reports: None GI: reports: Ulcers, Hiatal hernia : reports: None HEENT: reports: None Psych: reports: Depression, Anxiety, Post traumatic stress disorder Musculoskeletal: reports: None Derm: reports: None - Past Surgical History General: reports: Appendectomy Ortho: reports: Other - Family & Social History Family History: Mother: Alive and Well (is living with colon cancer), Father: ( from prostate cancer) Family History Comment/Other: Pt is living [facility]. Pt decline to provide any more family information at this points - Substance History Use: Uses substance without health or social issues: Cannabis - POLST POLST Status: Full Code <Squires - Last Filed: 01/30/18 08:13> Meds/Allgy <Vito Travis - Last Filed: 01/28/18 22:50> <Squires - Last Filed: 01/30/18 08:13> - Home Medications Home Medications: Ambulatory Orders Medication Instructions Recorded Confirmed Ondansetron Odt [Zofran Odt] 4 mg TL Q4HR PRN #10 tablet 07/13/17 01/29/18 Amitriptyline HCl 50 mg PO QPM 01/28/18 01/29/18 Metoclopramide [Reglan] 5 mg PO ACHS 01/28/18 01/29/18 Pantoprazole [Protonix] 40 mg PO BID 01/28/18 01/29/18 Prazosin HCl 1 mg PO QPM 01/28/18 01/29/18 oxyCODONE [Roxicodone] 10 mg PO Q6H PRN #30 tablet 01/29/18 - Allergies Allergies/Adverse Reactions: Allergies Allergy/AdvReac Type Severity Reaction Status Date / Time No Known Drug Allergies Allergy Verified 01/28/18 02:37 Review of Systems - Constitutional Constitutional: denies: Fatigue, Fever, Chills, Malaise, Weakness, Poor appetite , Diaphoresis, Night sweats - Eyes Eyes: denies: Pain, Irritation, Amaurosis, Blurred vision, Spots in vision, Field loss, Vision loss, Dipolpia - Ears, Nose & Throat Ears, Nose & Throat: denies: Ear pain, Hearing loss, Hearing aids, Vertigo, Nasal pain, Nasal discharge, Nosebleeds, Nasal obstruction, Nasal congestion, Dentures, Sore throat, Hoarseness - Cardiovascular Cariovascular: denies: Irregular heart rate, Palpitations, Chest pain, Edema, Lightheadedness, Syncope, Exertional dyspnea, Decr. exercise tolerance - Respiratory Respiratory: denies: Cough, Sputum production, Wheezing, Snoring, Hemoptysis, Orthopnea, SOB at rest, SOB with exertion - Gastrointestinal Gastrointestinal: reports: Abdominal pain, Nausea, Vomiting. denies: Abdominal distention, Constipation, Diarrhea, Change in bowel habits, Rectal bleeding, Black stools, Bloody stools, Bile emesis, Sherif blood emesis, Coffee grounds emesis, Reflux/heartburn, Bloating, Poor appetite - Genitourinary Genitourinary: denies: Dysuria, Frequency, Urgency, Hematuria, Incontinence, Flank pain, Nocturia, Urethral discharge - Musculoskeletal Musculoskeletal: denies: Muscle pain, Back pain, Muscle aches, Stiffness, Limited range of motion, Muscle weakness, Gout, Joint pain - Integumentary Integumentary: denies: Rash, Pruritis, Lesions, Dryness, Lumps, Acne, Pigment changes, Nail changes - Neurological Neurological: denies: General weakness, Focal weakness, Headache, Dizziness, Numbness, Memory problems, Pre-existing deficit, Abnormal gait, Seizures, Incoordination, Slurred speech - Psychiatric Psychiatric: denies: Depression, Anxiety, Suicidal, Delusions, Hallucinations, Homicidal - Endocrine Endocrine: denies: Polyuria, Polydypsia, Polyphagia, Intolerance to cold - Hematologic/Lymphatic Hematologic/Lymphatic: denies: Anemia, Bruising, Petechiae, Blood clots, Lymphadenopathy, Bleeding tendencies <Squires - Last Filed: 01/30/18 08:13> Exam - Vital Signs Reviewed Vital Signs: Yes - Physical Exam General Appearance: positive: No acute distress, Alert. negative: Lethargic Eyes Bilateral: positive: Normal inspection, PERRL, No lid inflammation, Conjunctivae nml ENT: positive: ENT inspection nml, Pharynx nml, No signs of dehydration. negative: Purulent nasal drainage, Pharyngeal erythema, Oral lesions Neck: positive: Nml inspection, Thyroid nml, No JVD, Trachea midline. negative : Thyromegaly, Lymphadenopathy (R), Lymphadenopathy (L), Stiff neck, Carotid bruit, Swelling/bruising, Tracheal deviation Respiratory: positive: Chest non-tender, No respiratory distress, Breath sounds nml. negative: Wheezes, Rales, Rhonchi Cardiovascular: positive: Regular rate & rhythm, No murmur, No gallop. negative : Irregularly irregular, Extrasystoles, Tachycardia, Bradycardia, JVD present, Systolic murmur, Diastolic murmur Peripheral Pulses: positive: 2+ Abdomen: positive: Non-tender, No organomegaly, Nml bowel sounds, No distention. negative: Tenderness, Guarding, Rebound, Hepatomegaly Back: positive: Nml inspection. negative: CVA tenderness (R), CVA tenderness (L ) Skin: positive: Color nml, No rash, Warm, Dry. negative: Cyanosis, Diaphoresis , Pallor, Skin rash Extremities: positive: Non-tender, Full ROM, Nml appearance. negative: Calf tenderness, Joint swelling, Maximilian's sign/cords Neurologic/Psychiatric: positive: Oriented x3, Motor nml, Sensation nml, Mood/ affect nml. negative: Weakness, Sensory loss, Facial droop, Slurred/abnml speech, Depressed mood/affect <Squires - Last Filed: 01/30/18 08:13> - Vital Signs Vital Signs: Vital Signs x48h Temp Pulse Resp BP Pulse Ox 01/28/18 22:30 102 H 126/81 H 94 01/28/18 21:00 99 16 94 01/28/18 20:35 106 H 18 96 01/28/18 16:29 36.8 C 100 17 133/86 H 98 Conclusion/Plan - Lab Results Devante Akhtar: 01/28/18 05:31 01/28/18 05:31 <Vito Travis - Last Filed: 01/28/18 22:50> - Problem List (1) Intractable nausea and vomiting Conclusion/Plan: Conclusion/Plan: recurrence problem, pt report he continue use of marijuana. Advise pt quit Marijuana according to recent study IVF of NS daily lab test, correct electrolytes antiemetics PRN Clear liquid diet, advanced as tolerated (2) Abdominal pain Conclusion/Plan: recent CT of abdomen were unremarkable, previous EGD, per pt report, unremarkable, pt has hx of abdominal pain with N/V, hx of gastritis/gastric ulcer pain control support, IVF, clear diet now, advanced as needed IV protonix continue home meds Carafate (3) HTN (hypertension) Conclusion/Plan: stable, vital monitor, add Clonidine PRN (4) History of depression Conclusion/Plan: stable, no home meds. continue monitor Qualifiers: Vomiting type: unspecified Qualified Code(s): R11.2 - Nausea with vomiting , unspecified - Lab Results Devante Akhtar: 01/28/18 05:31 01/28/18 05:31 <Squires - Last Filed: 01/30/18 08:13> Core Measures - Anticipated LOS I expect patient to be DC'd or transferred within 96 hours.: Yes - DVT/VTE - Prophylaxis VTE/DVT Device ordered at admit?: Yes <Squires - Last Filed: 01/30/18 08:13>
[2018-01-28] MEDS ORDERED: SODIUM CHLORIDE 0.9% 1,000 ML IV SCH (11:00)
[2018-01-28] MEDS ORDERED: HYDROmorphone 2 MG TABLET PO PRN (11:44)
[2018-01-28] MEDS ORDERED: LORazepam 0.5 MG TABLET PO PRN (11:46)
[2018-01-28] MEDS ORDERED: PANTOPRAZOLE 40 MG VIAL IVP SCH (12:00)
[2018-01-28] MEDS: HYDROmorphone 1 MG/ML CARPUJECT IVP PRN ×4 (12:57→19:05)
[2018-01-28] MEDS: LORazepam 2 MG/ML VIAL IVP PRN ×3 (14:16→18:38)
[2018-01-28] MEDS: SODIUM CHLORIDE FLUSH 0.9% 10 ML SYRINGE IVP PRN ×3 (16:25→18:38)
[2018-01-28] MEDS ORDERED: SODIUM CHLORIDE FLUSH 0.9% 10 ML SYRINGE IVP SCH (17:00)
[2018-01-28] MEDS ORDERED: PROCHLORPERAZINE 10 MG/2 ML VIAL IVP PRN (17:42)
[2018-01-28] MEDS ORDERED: ONDANSETRON 4 MG/2 ML VIAL IVP PRN (17:42)
[2018-01-28] MEDS ORDERED: PROMETHAZINE INJ 25 MG in SODIUM CHLORIDE 0.9% 50 ML IV PRN (17:43)
[2018-01-28] MEDS: SUCRALFATE 1 GM/10 ML UDC PO SCH ×2 (19:58→22:37)
[2018-01-28] MEDS ORDERED: PRAZOSIN 1 MG CAPSULE PO SCH (21:00)
[2018-01-28] MEDS ORDERED: AMITRIPTYLINE 25 MG TABLET PO SCH (21:00)
[2018-01-28 22:31] VITALS: BP 126/81
--- NOTE | 2018-01-28 23:34 | Discharge Plan ---
Discharge Plan Disposition: 07 Against Medical Advice Condition: Good No Smoking: If you smoke, Please STOP! Call for help.
[2018-01-29] MEDS ORDERED: POLYETHYLENE GLYCOL 3350 17 GM PACKET PO SCH (09:00)
--- NOTE | 2018-01-31 07:00 | DISCHARGE SUMMARY ---
Discharge Summary Admit Date: 01/28/18 Discharge Date: 01/28/18 Discharging Provider: Barb Caal MD Primary Care Provider: None per patient Condition at Discharge: Good Discharge Disposition: 07 Against Medical Advice - DIAGNOSES Discharge Diagnoses with Status of Each Condition: (1) Intractable nausea and vomiting (2) Abdominal pain (3) HTN (hypertension) (4) History of depression - HPI History of Present Illness: Mr. Wills is 42-yrs-old male with a PMH significant for HTN, "[place]" in another state before moving here, gastric ulcer, hiatal hernia, depression, anxiety, post traumatic stress disorder, who present ER for complaints of nausea , vomiting and diffuse abdominal pain. Pt report these nausea, vomiting and initiating abdominal pain started one days ago. Pt report he recently hospitalized in [facility] with similar medical problem. Pt also had multiple admission in this hospital with similar problem. Recent CT of abdomen reveals without acute significant finding. Pt report he continue to smoke Cannabinoids. Pt denies chest pain, fever, chill, cough, shortness of breath. - HOSPITAL COURSE Hospital Course: (1) Intractable nausea and vomiting During his stay he was treated with prn antiemetics, and IV opioids. He lost 2 IV's and required anesthesia placement with the 2nd one. He then lost that IV and we had called anesthesia to place a 3rd, when the patient left the hospital. After his IV medication would be given, he would be sleeping and hard to arouse but then waken and nursing reported he would make statements that he was unhappy at not being woken up to be given his meds. He is felt to have probable cyclical vomitting from cannibus. We have asked for records to be sent to us from [place] where had previous admissions and work up. (2) Abdominal pain on clear liquid diet and tolerated just prior to his leaving [place]. (3) HTN (hypertension) Conclusion/Plan: 126-156 systolic during his stay. (4) History of depression Conclusion/Plan: stable, no home meds. continue monitor. - ALLERGIES Allergies/Adverse Reactions: Allergies Allergy/AdvReac Type Severity Reaction Status Date / Time No Known Drug Allergies Allergy Verified 01/28/18 02:37 - MEDICATIONS Home Medications: Ambulatory Orders Medication Instructions Recorded Confirmed Ondansetron Odt [Zofran Odt] 4 mg TL Q4HR PRN #10 tablet 07/13/17 01/29/18 Amitriptyline HCl 50 mg PO QPM 01/28/18 01/29/18 Metoclopramide [Reglan] 5 mg PO ACHS 01/28/18 01/29/18 Pantoprazole [Protonix] 40 mg PO BID 01/28/18 01/29/18 Prazosin HCl 1 mg PO QPM 01/28/18 01/29/18 oxyCODONE [Roxicodone] 10 mg PO Q6H PRN #30 tablet 01/29/18 - PHYSICAL EXAM AT DISCHARGE Physical Exam Other/Comments: unable to be done since patient left AMA and walked out of the building. - LABS Result Diagrams: 01/28/18 05:31 01/28/18 05:31
== END 2018-01-28 23:35 | disposition left against medical advice (07) ==
LOC: EDUNIT# → ED 02:33 → OBS 10:34
PROVIDERS: ADMIT Nurse Practitioner Gerontology; ATTEND Specialist
DX: R11.2 Nausea with vomiting, unspecified (principal); Z53.20 Procedure and treatment not carried out because of patient's decision for unspecified reasons; K29.70 Gastritis, unspecified, without bleeding; I10 Essential (primary) hypertension; I25.2 Old myocardial infarction; K44.9 Diaphragmatic hernia without obstruction or gangrene; F32.9 Major depressive disorder, single episode, unspecified; F41.9 Anxiety disorder, unspecified; F43.10 Post-traumatic stress disorder, unspecified; F17.200 Nicotine dependence, unspecified, uncomplicated; Z87.11 Personal history of peptic ulcer disease; Z79.899 Other long term (current) drug therapy; Z80.0 Family history of malignant neoplasm of digestive organs; Z80.42 Family history of malignant neoplasm of prostate
CPT/HCPCS: 36415; 80053; 80306; 83690; 85025; 96361; 96365; 96372; 96375; 96376; 99284; A9270; G0378; J1170; J2060; J7040; Q0162; 83735

== ENCOUNTER 2018-01-28 23:20 | Observation (INO) | payer MEDICAID ==
[2018-01-28] MEDS ORDERED: SODIUM CHLORIDE 0.9% 1,000 ML IV ONE (23:46)
--- NOTE | 2018-01-28 23:46 | ED Physician Documentation ---
PD HPI NVD - Stated complaint Stated Complaint: NAUSEA/VOMITING/ABD PAIN - Chief complaint Chief Complaint: General - History obtained from History obtained from: Patient - History of Present Illness Timing - onset: How many days ago (1) Timing - duration: Days (1) Timing - details: Abrupt onset, Still present Associated symptoms: Abdominal pain, Other (nausea and vomiting) Contributing factors: No: Sick contact, Bad food Recently seen: Emergency Dept, Admitted (Patient was seen overnight last night in the ER with intractable nausea and vomiting and also having abdominal pain. He had had days and episodes in the past with previous admissions. He denies regular nausea or pain medicine and interval times. He was admitted to the hospital after failure of several doses of medications to improve his nausea and vomiting. He was in the hospital through the day today he was told he would be considered discharged AGAINST MEDICAL ADVICE if he did so. He went out to have a cigarette in came back 20 minutes later. He is now routed through the ER for evaluation before readmission. He is still been having symptoms through the day today and required medications for the day. Report from Hospitalist is that patient walked out due to angriness over IV not working and medical care.) Review of Systems GI: reports: Abdominal Pain (upper), Nausea, Vomiting PD PAST MEDICAL HISTORY - Past Medical History Cardiovascular: Hypertension, [place] Respiratory: None Neuro: None Endocrine/Autoimmune: None GI: Ulcers, Hiatal hernia : None HEENT: None Psych: Depression, Anxiety, Post traumatic stress disorder Musculoskeletal: None Derm: None - Past Surgical History Past Surgical History: Yes General: Appendectomy Ortho: Other - Present Medications Home Medications: Ambulatory Orders Medication Instructions Recorded Confirmed Ondansetron Odt [Zofran Odt] 4 mg TL Q4HR PRN #10 tablet 07/13/17 01/28/18 Promethazine [Phenergan] 25 mg PO Q6H PRN 07/13/17 01/28/18 Amitriptyline HCl 50 mg PO QPM 01/28/18 01/28/18 Metoclopramide [Reglan] 5 mg PO ACHS 01/28/18 01/28/18 Pantoprazole [Protonix] 40 mg PO BID 01/28/18 01/28/18 Prazosin HCl [Prazosin HCl] 1 mg PO QPM 01/28/18 01/28/18 Sucralfate [Carafate] 1 gm PO ACHS 01/28/18 01/28/18 - Allergies Allergies/Adverse Reactions: Allergies Allergy/AdvReac Type Severity Reaction Status Date / Time No Known Drug Allergies Allergy Verified 01/28/18 02:37 - Social History Does the pt smoke?: Yes Smoking Status: Current every day smoker Does the pt drink ETOH?: Yes Does the pt have substance abuse?: No - Immunizations Immunizations are current?: Yes - POLST POLST Status: Full Code PD ED PE NORMAL - Vitals Vital signs reviewed: Yes - General General: Alert and oriented X 3, No acute distress (complains of nausea and abd pain. No active vomiting at this time. ), Well developed/nourished - HEENT HEENT: Pharynx benign - Neck Neck: Supple, no meningeal sign, No adenopathy - Cardiac Cardiac: RRR, No murmur - Respiratory Respiratory: Clear bilaterally - Abdomen Abdomen: Soft, No organomegaly, Other (tender upper abd. ) - Neuro Neuro: Alert and oriented X 3, No motor deficit, Normal speech Eye Opening: Spontaneous Motor: Obeys Commands Verbal: Oriented GCS Score: 15 Results - Vitals Vitals: Vital Signs - 24 hr 01/28/18 01/29/18 23:24 01:42 Temperature 36.2 C L Heart Rate 124 H 107 H Respiratory 16 16 Rate Blood Pressure 128/88 H 115/81 H O2 Saturation 98 100 Oxygen O2 Source Room air PD MEDICAL DECISION MAKING - ED course Complexity details: reviewed old records, re-evaluated patient (still needing repeated doses antiemetics for his nausea. Talked with hospitalist, who wants urine for UTox prior to readmission. ), considered differential, d/w patient - Sepsis Event Vital Signs: Vital Signs - 24 hr 01/28/18 01/29/18 23:24 01:42 Temperature 36.2 C L Heart Rate 124 H 107 H Respiratory 16 16 Rate Blood Pressure 128/88 H 115/81 H O2 Saturation 98 100 Oxygen O2 Source Room air Departure - Departure Disposition: ED Place in Observation Clinical Impression: Oppositional behavior Intractable nausea and vomiting Qualifiers: Vomiting type: unspecified Qualified Code(s): R11.2 - Nausea with vomiting, unspecified Abdominal pain Qualifiers: Abdominal location: upper abdomen, unspecified Qualified Code(s): R10.10 - Upper abdominal pain, unspecified Condition: Stable Record reviewed to determine appropriate education?: Yes
[2018-01-28] MEDS ORDERED: HYDROmorphone 2 MG/ML VIAL IVP STA (23:59)
[2018-01-28] MEDS ORDERED: PROCHLORPERAZINE 10 MG/2 ML VIAL IVP STA (23:59)
[2018-01-29] MEDS ORDERED: SODIUM CHLORIDE 0.9% 1,000 ML IV ONE ×2 (02:05→03:34)
[2018-01-29] MEDS ORDERED: KETOROLAC 60 MG/2 ML VIAL IVP STA (02:06)
[2018-01-29] MEDS ORDERED: PROCHLORPERAZINE 10 MG/2 ML VIAL IVP STA (02:06)
[2018-01-29] MEDS ORDERED: SODIUM CHLORIDE FLUSH 0.9% 10 ML SYRINGE IVP PRN (03:33)
--- NOTE | 2018-01-29 03:38 | HISTORY & PHYSICAL EXAMINATION ---
Chief Complaint - Chief Complaint Chief Complaint: intractable nausea and vomitting History of Present Illness - Admitted From Admitted From:: ER - History [facility] obtained from: [facility] Exam Limitations: none - History of Present Illness HPI Comment/Other: He was just admitted for his hx of abd pain w n/v. This was his 4th admit for the symptoms since 06/2017. Cause of his symptoms not clear w DD of cannibus use possible cause. In the late evening yesterday, he was not happy with IV infiltration and that he would have to wait for IV meds until new IV placed. Anesthesia had already placed a new IV ariound 12:40 pm. When RN placed call to Anesthesia for new IV, she retunred to find him walking down the hallway to exit. At first she thought he was going to lobby but when she looked again, he had left the hospital with his at his side. Wearing gown and infiltrated IV in place. He was designated leaving AMA He then returned. Denies any use of recreational substance and wants to be reobserved for same pain. No change in previous H&P. History - Past Medical History Cardiovascular: reports: Hypertension, [place] Respiratory: reports: None Neuro: reports: None Endocrine/Autoimmune: reports: None GI: reports: Ulcers, Hiatal hernia : reports: None HEENT: reports: None Psych: reports: Depression, Anxiety, Post traumatic stress disorder Musculoskeletal: reports: None Derm: reports: None - Past Surgical History General: reports: Appendectomy Ortho: reports: Other - Family & Social History Family History: Mother: Alive and Well (is living with colon cancer), Father: ( from prostate cancer) Family History Comment/Other: Pt is living [facility]. Pt decline to provide any more family information at this points - Substance History Use: Uses substance without health or social issues: Cannabis - POLST Patient has POLST: No POLST Status: Full Code Meds/Allgy - Home Medications Home Medications: Ambulatory Orders Medication Instructions Recorded Confirmed Ondansetron Odt [Zofran Odt] 4 mg TL Q4HR PRN #10 tablet 07/13/17 01/29/18 Amitriptyline HCl 50 mg PO QPM 01/28/18 01/29/18 Metoclopramide [Reglan] 5 mg PO ACHS 01/28/18 01/29/18 Pantoprazole [Protonix] 40 mg PO BID 01/28/18 01/29/18 Prazosin HCl 1 mg PO QPM 01/28/18 01/29/18 oxyCODONE [Roxicodone] 10 mg PO Q6H PRN #30 tablet 01/29/18 - Allergies Allergies/Adverse Reactions: Allergies Allergy/AdvReac Type Severity Reaction Status Date / Time No Known Drug Allergies Allergy Verified 01/28/18 02:37 Exam - Vital Signs Vital Signs: Vital Signs x48h Temp Pulse Resp BP Pulse Ox 01/29/18 01:42 107 H 16 115/81 H 100 01/28/18 23:24 36.2 C L 124 H 16 128/88 H 98 - Physical Exam General Appearance: positive: No acute distress, Alert Eyes Bilateral: positive: PERRL, EOMI ENT: positive: Pharynx nml Neck: positive: No JVD. negative: Stiff neck, Carotid bruit Respiratory: positive: Chest non-tender. negative: Wheezes, Rales, Rhonchi Cardiovascular: positive: Regular rate & rhythm, No murmur. negative: Gallop/S4 , Friction rub Peripheral Pulses: positive: 1+ Abdomen: positive: No organomegaly, Nml bowel sounds, No distention, Tenderness. negative: Guarding, Rebound, Hepatomegaly, Splenomegaly Skin: positive: Warm, Dry Extremities: positive: Non-tender, Full ROM Neurologic/Psychiatric: positive: Oriented x3, CN's nml (2-12), Motor nml Conclusion/Plan - Problem List (1) Intractable nausea and vomiting Conclusion/Plan: This is a readmit from a patient who left AMA. He has been gone for a few hours. Continue the same meds from 4 hours ago with antiemetics, IVF for hydration, and low dose opioids. Qualifiers: Vomiting type: unspecified Qualified Code(s): R11.2 - Nausea with vomiting , unspecified
[2018-01-29 03:56] LABS: MUDS CUTOFF CONCENTRATIONS CUTOFF CONC BELOW:
[2018-01-29 03:59] LABS: GLUCOSE, URINE (UA) NEGATIVE (NEGATIVE); KETONES,URINE (UA) TRACE mg/dL (NEGATIVE); LEUKOCYTE ESTERASE, URINE NEGATIVE (NEGATIVE); NITRITE,URINE POSITIVE (NEGATIVE); OCCULT BLOOD,URINE TRACE-LYSE (NEGATIVE); PH,URINE 5.5 PH (5.0-7.5); PROTEIN,URINE 30 mg/dL (NEGATIVE); UROBILINOGEN,URINE 0.2 (NORMAL) E.U./dL (NORMAL)
[2018-01-29 04:15] LABS: CLARITY,URINE CLEAR (CLEAR)
[2018-01-29 04:17] LABS: BILIRUBIN,URINE NEGATIVE (NEGATIVE); ICTOTEST,URINE NEGATIVE
[2018-01-29 04:19] LABS: BACTERIA,URINE Few /HPF (None Seen); COCAINE SCREEN URINE NEGATIVE (NEGATIVE); METHAMPHETAMINES SCREEN, URINE NEGATIVE (NEGATIVE); MUCUS,URINE Marked Strands; OPIATE SCREEN, URINE POSITIVE (NEGATIVE); RBC,URINE 0-5 /HPF (0-5); SQUAMOUS EPITHELIAL CELL,UR MOD Squamous (<= Few)
[2018-01-29 04:20] LABS: AMPHETAMINE SCREEN,URINE NEGATIVE (NEGATIVE); BENZODIAZEPINES SCREEN, URINE POSITIVE (NEGATIVE); METHADONE SCREEN, URINE NEGATIVE (NEGATIVE); OXYCODONE SCREEN, URINE NEGATIVE (NEGATIVE); PROPOXYPHENE SCREEN, URINE NEGATIVE (NEGATIVE); TRICYCLIC ANTIDEPRESSANT,URINE POSITIVE (NEGATIVE)
[2018-01-29] MEDS: ONDANSETRON 4 MG/2 ML VIAL IVP PRN ×3 (04:59→17:52)
[2018-01-29] MEDS ORDERED: NICOTINE 14 MG PATCH TOP SCH (06:00)
[2018-01-29] MEDS: SODIUM CHLORIDE 0.9% 1,000 ML IV SCH ×2 (06:02→14:59)
[2018-01-29] MEDS: HYDROmorphone 0.5 MG/0.5 ML SYRINGE IVP PRN ×7 (06:03→17:52)
[2018-01-29] MEDS ORDERED: METOCLOPRAMIDE 10 MG/2 ML VIAL IVP PRN (06:08)
[2018-01-29] MEDS ORDERED: PROMETHAZINE INJ 25 MG in SODIUM CHLORIDE 0.9% 50 ML IV PRN (06:08)
[2018-01-29] MEDS: SODIUM CHLORIDE FLUSH 0.9% 10 ML SYRINGE IVP SCH ×2 (07:33→16:17)
[2018-01-29] MEDS ORDERED: POLYETHYLENE GLYCOL 3350 17 GM PACKET PO SCH (09:00)
[2018-01-29] MEDS: PROCHLORPERAZINE 10 MG/2 ML VIAL IVP PRN ×2 (09:03→14:59)
[2018-01-29] MEDS ORDERED: chlorproMAZINE 25 MG TABLET PO PRN (10:27)
--- NOTE | 2018-01-29 17:20 | Discharge Plan ---
Discharge Plan Disposition: Home, Self Care Condition: Poor Prescriptions: oxyCODONE [Roxicodone] 10 mg PO Q6H PRN #30 tablet PRN Reason: Pain Diet: Regular Activity Restrictions: Activity as Tolerated Shower Restrictions: No (fall precaution) Instruction Topics: Oxycodone tablets or capsules Additional Instructions or Follow Up instructions: You may follow up your PCP in two weeks, and follow up [employer] as out -pt. Should your symptom return or worsen, you may present ER or call 911 for help. No Smoking: If you smoke, Please STOP! Call for help. Follow-up with: Provider,Other [Primary Care Provider] -
--- NOTE | 2018-01-29 17:23 | DISCHARGE SUMMARY ---
Discharge Summary Discharge Date: 01/29/18 Discharging Provider: HOPPER Condition at Discharge: Poor Discharge Disposition: 01 Home, Self Care Discharge Facility Name: home - DIAGNOSES Admission Diagnoses: Intractable nausea and vomiting Discharge Diagnoses with Status of Each Condition: Intractable nausea and vomiting resolved. pt tolerate regular diet, no nausea or vomiting, no abdominal pain. pt is happy to be d/c to home today - HPI History of Present Illness: pt was admitted on yesterday for intractable nausea, vomiting and abdominal pain. Pt left hospital with designated AMA. Then Pt return ER with the similar complaint, intractable nausea, vomiting. pt was admitted in observation unit for intractable nausea, vomiting. - ALLERGIES Allergies/Adverse Reactions: Allergies Allergy/AdvReac Type Severity Reaction Status Date / Time No Known Drug Allergies Allergy Verified 01/28/18 02:37 - MEDICATIONS Home Medications: Ambulatory Orders Medication Instructions Recorded Confirmed Ondansetron Odt [Zofran Odt] 4 mg TL Q4HR PRN #10 tablet 07/13/17 01/29/18 Amitriptyline HCl 50 mg PO QPM 01/28/18 01/29/18 Metoclopramide [Reglan] 5 mg PO ACHS 01/28/18 01/29/18 Pantoprazole [Protonix] 40 mg PO BID 01/28/18 01/29/18 Prazosin HCl 1 mg PO QPM 01/28/18 01/29/18 oxyCODONE [Roxicodone] 10 mg PO Q6H PRN #30 tablet 01/29/18 - PHYSICAL EXAM AT DISCHARGE General Appearance: positive: No acute distress, Alert. negative: Lethargic Eyes Bilateral: positive: Normal inspection, PERRL, No lid inflammation, Conjunctivae nml ENT: positive: ENT inspection nml, Pharynx nml, No signs of dehydration. negative: Purulent nasal drainage, Pharyngeal erythema, Oral lesions Neck: positive: Nml inspection, Thyroid nml, No JVD, Trachea midline. negative : Thyromegaly, Lymphadenopathy (R), Lymphadenopathy (L), Stiff neck, Swelling/ bruising, Tracheal deviation Respiratory: positive: Chest non-tender, No respiratory distress, Breath sounds nml. negative: Wheezes, Rales, Rhonchi Cardiovascular: positive: Regular rate & rhythm, No murmur, No gallop. negative : Irregularly irregular, Extrasystoles, Tachycardia, Bradycardia, JVD present, Systolic murmur, Diastolic murmur Peripheral Pulses: positive: 2+ Abdomen: positive: Non-tender, No organomegaly, Nml bowel sounds, No distention. negative: Tenderness, Guarding, Rebound Back: positive: Nml inspection. negative: CVA tenderness (R), CVA tenderness (L ) Skin: positive: Color nml, No rash, Warm, Dry. negative: Cyanosis, Diaphoresis , Pallor Extremities: positive: Non-tender, Full ROM, Nml appearance. negative: Calf tenderness, Joint swelling, Maximilian's sign/cords Neurologic/Psychiatric: positive: Oriented x3, Motor nml, Sensation nml, Mood/ affect nml. 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 Should your symptom return or worsen, you may present ER or call 911 for help. - TIME SPENT Time Spent in Discharge (Minutes): 40
[2018-01-29 17:35] VITALS: BP 155/94
[2018-01-29] MEDS ORDERED: AMITRIPTYLINE 25 MG TABLET PO SCH (21:00)
[2018-01-29] MEDS ORDERED: PRAZOSIN 1 MG CAPSULE PO SCH (21:00)
== END 2018-01-29 19:12 | disposition home or self-care (01) ==
LOC: ED 23:20 → OBS 01-29 03:33
PROVIDERS: ADMIT Specialist; ATTEND Nurse Practitioner Gerontology
DX: R11.2 Nausea with vomiting, unspecified (principal); R10.10 Upper abdominal pain, unspecified; R10.819 Abdominal tenderness, unspecified site; Z91.19 Patient's noncompliance with other medical treatment and regimen; I10 Essential (primary) hypertension; I25.2 Old myocardial infarction; Z87.11 Personal history of peptic ulcer disease; K44.9 Diaphragmatic hernia without obstruction or gangrene; F32.9 Major depressive disorder, single episode, unspecified; F41.9 Anxiety disorder, unspecified; F43.10 Post-traumatic stress disorder, unspecified; F17.210 Nicotine dependence, cigarettes, uncomplicated; Z80.42 Family history of malignant neoplasm of prostate; Z80.0 Family history of malignant neoplasm of digestive organs; Z79.899 Other long term (current) drug therapy
CPT/HCPCS: 80306; 81001; 96361; 96374; 96375; 96376; 99283; 99284; 99406; A9270; G0378; J1170; J2765; 81003; 87086

== ENCOUNTER 2018-05-16 17:55 | Outpatient (CLI) | payer MEDICAID | END 2018-05-16 17:56 | disposition EMS.NT | LOC: EMS 17:55 | PROVIDERS: ATTEND Surgery | DX: R11.10 Vomiting, unspecified (principal) ==

== ENCOUNTER 2018-05-16 18:47 | Emergency (ER) | payer MEDICAID ==
[2018-05-16] MEDS ORDERED: HALOPERIDOL 5 MG/ML VIAL IVP ONE (19:16)
[2018-05-16] MEDS ORDERED: HYDROmorphone 2 MG/ML VIAL IVP STA (19:16)
[2018-05-16] MEDS ORDERED: SODIUM CHLORIDE 0.9% 1,000 ML IV ONE (19:16)
--- NOTE | 2018-05-16 19:18 | ED Physician Documentation ---
History of Present Illness - Stated complaint Stated Complaint: VOMITING - Chief complaint Chief Complaint: General - History obtained from History obtained from: Patient - History of Present Illness Timing: Yesterday (43-year-old gentleman with recurrent upper abdominal pain and vomiting. Review of the chart suggests that the diagnosis would be cannabinoid hyperemesis. He has had progressive abdominal pain and vomiting since yesterday with decreased bowel movements. He continues to smoke marijuana although he admits that he smokes less than he used to.) Review of Systems Ten Systems: 10 systems reviewed and negative Constitutional: denies: Fever, Chills GI: reports: Abdominal Pain, Nausea, Vomiting, Constipation. denies: Diarrhea : denies: Dysuria, Frequency PD PAST MEDICAL HISTORY - Past Medical History Cardiovascular: Hypertension, [place] Respiratory: None Neuro: None Endocrine/Autoimmune: None GI: Ulcers, Hiatal hernia : None HEENT: None Psych: Depression, Anxiety, Post traumatic stress disorder Musculoskeletal: None Derm: None - Past Surgical History Past Surgical History: Yes General: Appendectomy Ortho: Other - Present Medications Home Medications: Ambulatory Orders Medication Instructions Recorded Confirmed Ondansetron Odt [Zofran Odt] 4 mg TL Q4HR PRN #10 tablet 07/13/17 01/29/18 Amitriptyline HCl 50 mg PO QPM 01/28/18 01/29/18 Metoclopramide [Reglan] 5 mg PO ACHS 01/28/18 01/29/18 Pantoprazole [Protonix] 40 mg PO BID 01/28/18 01/29/18 Prazosin HCl 1 mg PO QPM 01/28/18 01/29/18 oxyCODONE [Roxicodone] 10 mg PO Q6H PRN #30 tablet 01/29/18 Oxycodone HCl/Acetaminophen 1 - 2 each PO Q6H PRN #14 tablet 05/16/18 [Percocet 5-325 mg Tablet] Promethazine [Phenergan] 25 mg PO Q6H PRN #14 tab 05/16/18 - Allergies Allergies/Adverse Reactions: Allergies Allergy/AdvReac Type Severity Reaction Status Date / Time No Known Drug Allergies Allergy Verified 01/28/18 02:37 - Social History Does the pt smoke?: Yes Smoking Status: Current every day smoker Does the pt drink ETOH?: Yes Does the pt have substance abuse?: No - Immunizations Immunizations are current?: Yes - POLST POLST Status: Full Code PD ED PE NORMAL - Vitals Vital signs reviewed: Yes - General General: Alert and oriented X 3, Other (Actively retching) - HEENT HEENT: PERRL, Pharynx benign - Neck Neck: Supple, no meningeal sign, No bony TTP - Cardiac Cardiac: RRR, No murmur - Respiratory Respiratory: No respiratory distress, Clear bilaterally - Abdomen Abdomen: Normal bowel sounds, Soft, Non tender - Derm Derm: Normal color, Warm and dry - Extremities Extremities: No edema, No calf tenderness / cord - Neuro Neuro: Alert and oriented X 3, Normal speech Results - Vitals Vitals: Vital Signs - 24 hr 05/16/18 05/16/18 05/16/18 18:52 20:32 21:05 Temperature 37.4 C Heart Rate 73 96 103 H Respiratory 16 18 16 Rate Blood Pressure 151/80 H 138/83 H 138/83 H O2 Saturation 99 96 100 05/16/18 21:45 Temperature Heart Rate 92 Respiratory 16 Rate Blood Pressure 140/85 H O2 Saturation 98 Oxygen O2 Source Room air - EKG (time done) 1852 Rate: Rate (enter#) (102) Rhythm: Sinus tachycardia [place]: Normal Intervals: Normal MD QRS: Normal Ischemia: Non specific changes Computer interpretation: Agree with computer - Labs Labs: Laboratory Tests 05/16/18 05/16/18 05/16/18 19:30 19:30 20:48 WBC 11.5 H RBC 4.69 L Hgb 14.6 Hct 44.1 MCV 94.0 MCH 31.1 H MCHC 33.1 RDW 14.4 Plt Count 336 MPV 6.8 L Neut # (Auto) 9.7 H Lymph # (Auto) 1.4 L [place] # (Auto) 0.3 Eos # (Auto) 0.0 Baso # (Auto) 0.1 Absolute Nucleated RBC 0.01 Nucleated RBC % 0.1 Sodium 137 Potassium 3.6 Chloride 101 Carbon Dioxide 21 Anion Gap 15.0 H BUN 16 Creatinine 1.0 Estimated GFR (MDRD) 98 Glucose 134 H Calcium 9.9 Total Bilirubin 0.6 AST 38 ALT 63 H Alkaline Phosphatase 60 Total Protein 9.0 H Albumin 5.5 Globulin 3.5 Albumin/Globulin Ratio 1.6 Lipase 19 L Urine Color YELLOW Urine Clarity CLEAR Urine pH 7.0 Ur Specific [place] 1.020 Urine Protein 100 H Urine Glucose (UA) NEGATIVE Urine Ketones 40 H Urine Occult Blood NEGATIVE Urine Nitrite NEGATIVE Urine Bilirubin NEGATIVE Urine Urobilinogen 0.2 (NORMAL) Ur Leukocyte Esterase NEGATIVE Urine RBC None Seen Urine WBC 0-3 Ur Squamous Epith Cells NONE SEEN Urine Bacteria None Seen Ur Microscopic Review INDICATED Urine Culture Comments NOT INDICATED Urine Opiates Screen Ur Oxycodone Screen Urine Methadone Screen Ur Propoxyphene Screen Ur Barbiturates Screen Ur Tricyclics Screen Ur Phencyclidine Scrn Ur Amphetamine Screen U Methamphetamines Scrn U Benzodiazepines Scrn Urine Cocaine Screen U Cannabinoids Screen 05/16/18 20:48 WBC RBC Hgb Hct MCV MCH MCHC RDW Plt Count MPV Neut # (Auto) Lymph # (Auto) [place] # (Auto) Eos # (Auto) Baso # (Auto) Absolute Nucleated RBC Nucleated RBC % Sodium Potassium Chloride Carbon Dioxide Anion Gap BUN Creatinine Estimated GFR (MDRD) Glucose Calcium Total Bilirubin AST ALT Alkaline Phosphatase Total Protein Albumin Globulin Albumin/Globulin Ratio Lipase Urine Color Urine Clarity Urine pH Ur Specific [place] Urine Protein Urine Glucose (UA) Urine Ketones Urine Occult Blood Urine Nitrite Urine Bilirubin Urine Urobilinogen Ur Leukocyte Esterase Urine RBC Urine WBC Ur Squamous Epith Cells Urine Bacteria Ur Microscopic Review Urine Culture Comments Urine Opiates Screen NEGATIVE Ur Oxycodone Screen NEGATIVE Urine Methadone Screen NEGATIVE Ur Propoxyphene Screen NEGATIVE Ur Barbiturates Screen NEGATIVE Ur Tricyclics Screen POSITIVE H Ur Phencyclidine Scrn NEGATIVE Ur Amphetamine Screen NEGATIVE U Methamphetamines Scrn NEGATIVE U Benzodiazepines Scrn NEGATIVE Urine Cocaine Screen NEGATIVE U Cannabinoids Screen POSITIVE H Procedures - General procedure General procedure: He was difficult for IV access. Multiple nurses tried and failed. I personally placed a long 22-gauge IV in the right deep brachial vein after ChloraPrep using real-time ultrasound guidance that flushed and anurag well. PD MEDICAL DECISION MAKING - ED course ED course: 43-year-old gentleman with recurrent upper abdominal pain and vomiting. Likely cannabinoid hyperemesis syndrome. Treated stepwise with medications here and feeling much better and requesting discharge. Departure - Departure Disposition: 01 Home, Self Care Clinical Impression: Vomiting, Cannabinoid hyperemesis syndrome Condition: Good Record reviewed to determine appropriate education?: Yes Instructions: ED Diet Vomiting Diarrhea, ED Nausea Vomiting Prescriptions: Oxycodone HCl/Acetaminophen [Percocet 5-325 mg Tablet] 1 - 2 each PO Q6H PRN #14 tablet PRN Reason: pain Promethazine [Phenergan] 25 mg PO Q6H PRN #14 tab PRN Reason: Nausea / Vomiting Comments: It is important to stop smoking marijuana, if you cease smoking marijuana this will likely not happen anymore. Call your doctor to arrange a follow-up appointment, make the next available appointment. In the interim, return anytime if worse or if new symptoms develop.
[2018-05-16] MEDS ORDERED: HALOPERIDOL 5 MG/ML VIAL IM STA (19:35)
[2018-05-16] MEDS ORDERED: HYDROmorphone 1 MG/ML CARPUJECT IM STA (19:35)
[2018-05-16 19:44] LABS: BASOPHILS # (AUTO) 0.1 10^3/uL (0.0-0.1); BASOPHILS % (AUTO) 0.7 %; EOSINOPHILS % (AUTO) 0.1 %; HGB - HEMOGLOBIN 14.6 g/dL (14.0-18.0); LYMPHOCYTES # (AUTO) 1.4 10^3/uL (1.5-3.5); LYMPHOCYTES % (AUTO) 11.9 %; MEAN CORPUSCULAR HEMOGLOBIN 31.1 pg (27.0-31.0); MEAN CORPUSCULAR HGB CONC 33.1 g/dL (32.0-36.0); MEAN PLATELET VOLUME 6.8 fL (7.4-11.4); MONOCYTES # (AUTO) 0.3 10^3/uL (0.0-1.0); NEUTROPHILS # (AUTO) 9.7 10^3/uL (1.5-6.6); NEUTROPHILS % (AUTO) 84.3 %; PLT - PLATELET COUNT 336 10^3/uL (130-450); RED BLOOD COUNT 4.69 10^6/uL (4.70-6.10); RED CELL DISTRIBUTION WIDTH 14.4 % (12.0-15.0); WHITE BLOOD COUNT 11.5 x10^3/uL (4.8-10.8)
[2018-05-16 19:55] LABS: ALBUMIN 5.5 g/dL (3.2-5.5); ALBUMIN/GLOBULIN RATIO 1.6 (1.0-2.2); BILIRUBIN,TOTAL 0.6 mg/dL (0.2-1.0); CALCIUM 9.9 mg/dL (8.5-10.3)
[2018-05-16] MEDS ORDERED: ONDANSETRON 4 MG/2 ML VIAL IVP STA (20:17)
[2018-05-16] MEDS ORDERED: HYDROmorphone 1 MG/ML CARPUJECT IVP STA ×2 (20:17→21:21)
[2018-05-16 20:53] LABS: BILIRUBIN,URINE NEGATIVE (NEGATIVE); GLUCOSE, URINE (UA) NEGATIVE (NEGATIVE); KETONES,URINE (UA) 40 mg/dL (NEGATIVE); LEUKOCYTE ESTERASE, URINE NEGATIVE (NEGATIVE); NITRITE,URINE NEGATIVE (NEGATIVE); OCCULT BLOOD,URINE NEGATIVE (NEGATIVE); PROTEIN,URINE 100 mg/dL (NEGATIVE); UROBILINOGEN,URINE 0.2 (NORMAL) E.U./dL (NORMAL)
[2018-05-16 20:54] LABS: CLARITY,URINE CLEAR (CLEAR)
[2018-05-16 20:59] LABS: MUDS CUTOFF CONCENTRATIONS CUTOFF CONC BELOW:
[2018-05-16 21:02] LABS: BACTERIA,URINE None Seen /HPF (None Seen); RBC,URINE None Seen /HPF (0-5); SQUAMOUS EPITHELIAL CELL,UR NONE SEEN (<= Few)
[2018-05-16 21:14] LABS: AMPHETAMINE SCREEN,URINE NEGATIVE (NEGATIVE); BENZODIAZEPINES SCREEN, URINE NEGATIVE (NEGATIVE); COCAINE SCREEN URINE NEGATIVE (NEGATIVE); METHADONE SCREEN, URINE NEGATIVE (NEGATIVE); METHAMPHETAMINES SCREEN, URINE NEGATIVE (NEGATIVE); OPIATE SCREEN, URINE NEGATIVE (NEGATIVE); OXYCODONE SCREEN, URINE NEGATIVE (NEGATIVE); PROPOXYPHENE SCREEN, URINE NEGATIVE (NEGATIVE); TRICYCLIC ANTIDEPRESSANT,URINE POSITIVE (NEGATIVE)
[2018-05-16] MEDS ORDERED: METOCLOPRAMIDE 10 MG/2 ML VIAL IVP STA (21:32)
[2018-05-16 21:46] VITALS: BP 140/85
[2018-05-16] MEDS ORDERED: PROMETHAZINE 25 MG TABLET PO STA (22:04)
[2018-05-16] MEDS ORDERED: oxyCODONE/ACET 5/325 Prepack 4 PO STA (22:04)
== END 2018-05-16 22:18 | disposition home or self-care (01) ==
LOC: EDUNIT# → EDBD → ED 18:47
DX: T40.7X1A Poisoning by cannabis (derivatives), accidental (unintentional), initial encounter (principal); R11.11 Vomiting without nausea; F12.90 Cannabis use, unspecified, uncomplicated; I10 Essential (primary) hypertension; I25.2 Old myocardial infarction; R00.0 Tachycardia, unspecified; I44.4 Left anterior fascicular block; F17.200 Nicotine dependence, unspecified, uncomplicated
CPT/HCPCS: 36415; 80053; 80306; 81001; 83690; 85025; 93005; 96361; 96372; 96374; 96375; 96376; 99283; 99284; J1170; J2765; Q0169; 81003; 87086